=== PATIENT | female | born 1990 | race African-American/Black ===

== ENCOUNTER 2016-12-18 04:18 | Emergency (ER) | payer OTHER ==
[2016-12-18 04:39] VITALS: TEMP 97.7; BMI 23.8
[2016-12-18] MEDS ORDERED: SODIUM CHLORIDE 0.9% 1000 ML INFUS.BAG IV ONE (05:02)
[2016-12-18] MEDS ORDERED: KETOROLAC TROMETHAMINE 30 MG/1 ML VIAL IVPUSH ONE (05:02)
[2016-12-18] MEDS ORDERED: HYDROmorphone HCL CARPU-JECT 1 MG/1 ML DISP.SYRIN IVPUSH ONE ×2 (05:16→05:57)
[2016-12-18] MEDS ORDERED: HYDROmorphone HCL CARPU-JECT 1 MG/1 ML DISP.SYRIN ONE ×2 (05:17→06:04)
--- NOTE | 2016-12-18 05:25 | PDOC ---
[id number] CHEST PAIN - SICKLE CELL Time Seen by Provider: 12/18/16 05:01 - History of Present Illness Initial Comments: 12/18/16 05:17 CHIEF COMPLAINT: Sickle cell crisis HISTORY OF PRESENT ILLNESS: 26-year-old female with history of sickle cell anemia presents to ED with generalized pain. Patient states "it has been a long time" since her last sickle cell crisis. Patient complains of pain to her whole body including her chest that began an hour ago. FAMILY HISTORY: Denies SOCIAL HISTORY: Denies tobacco, alcohol, illicit drug use. SURGICAL HISTORY: Denies ALLERGIES: No known drug allergies REVIEW OF SYSTEMS General/Constitutional: Denies fever or chills. Denies weakness, weight change. HEENT: Denies change in vision. Denies ear pain or discharge. Denies sore throat. Cardiovascular: Chest pain, shortness of breath. Respiratory: Denies cough, wheezing, or hemoptysis. Gastrointestinal: Denies nausea, vomiting, diarrhea or constipation. Denies rectal bleeding. Genitourinary: Denies dysuria, frequency, or change in urination. Musculoskeletal: Generalized pain. Skin and breasts: Denies rash or easy bruising. Neurologic: Denies headache, vertigo, loss of consciousness, or loss of sensation. PHYSICAL EXAM General Appearance: Uncomfortable appearing, appropriately dressed. HEENT: EOMI, PERRLA, normal ENT inspection, normal voice, TMs normal, pharynx normal. No conjunctival pallor. No photophobia, scleral icterus. Neck: Supple. Trachea midline. No tenderness, rigidity, carotid bruit, stridor , lymphadenopathy, or thyromegaly. Respiratory/Chest: Lungs CTAB. No shortness of breath, chest tenderness, respiratory distress, accessory muscle use. No crackles, rales, rhonchi, stridor , wheezing, dullness Cardiovascular: RRR. S1, S2. Gastrointestinal/Abdominal: Normal bowel sounds. Abdomen soft, non-distended. No tenderness or rebound tenderness. No organomegaly, pulsatile mass, guarding , hernia, hepatomegaly, splenomegaly. Musculoskeletal/Extremities: Normal inspection. FROM of all extremities, normal capillary refill. No tenderness to extremities, pedal edema, swelling, erythema or deformity. Integumentary: Appropriate color, dry, warm. 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 Fully oriented, alert. Appropriate mood/affect. Motor strength 5/5. No appreciable EOM palsy, facial droop or sensory deficit. 12/18/16 05:25 Past History - Past Medical History Allergies/Adverse Reactions: Allergies Allergy/AdvReac Type Severity Reaction Status Date / Time No Known Allergies Allergy Verified 12/18/16 04:39 Home Medications: Ambulatory Orders Cefuroxime Axetil [Ceftin -] 500 mg PO Q12H #20 tablet 12/28/16 Ibuprofen [Motrin -] 600 mg PO QID PRN #28 tablet 12/28/16 Anemia: (Sickle cell) - Immunization History Immunization Up to Date: Yes - Psycho/Social/Smoking Cessation Hx Anxiety: No Suicidal Ideation: No Smoking History: Never smoked Information on smoking cessation initiated: No Hx Alcohol Use: No Drug/Substance Use Hx: No Substance Use Type: None *Physical Exam - Vital Signs Last Vital Signs Temp Pulse Resp BP Pulse Ox 97.7 F 63 19 96/57 100 12/18/16 04:35 12/18/16 04:35 12/18/16 04:35 12/18/16 04:35 12/18/16 04:35 ED Treatment Course - LABORATORY CBC & Chemistry Diagram: 12/18/16 05:10 12/18/16 05:10 - RADIOLOGY Radiology Studies Ordered: Category Date Time Status CHEST PA & LAT [RAD] Stat Radiology 12/18/16 05:15 Ordered Medical Decision Making - Medical Decision Making 12/18/16 05:28 26 yo F with hx of sickle cell anemia presents to ED with sickle cell crisis. -CBC, retic count, CMP, serum preg -1 L IVF -30 mg Toradol IVPUSH -0.5 mg Dilaudid IVPUSH -2L O2 via NC -CXR eval for acute chest 12/18/16 06:32 Patient reassessed; states her pain is much better but "my chest still feels tight." Awaiting CXR. -Albuterol nebs Labs: WBC 11.8, Hg 9.6, retic count 6.23, bilirubin 1.9 Clinical presentation consistent with hyperhemolytic crisis. Case discussed in detail with oncoming emergency provider including history, physical exam and ancillary studies. In brief, this patient is being seen in the ED for a chief complaint of: sickle cell crisis I have completed the initial assessment interview note and have ordered the following labs: CBC, retic count, CMP, serum preg I have reviewed the following results: all Plan for disposition as follows: pending CXR Oncoming ANDRZEJ Joy has assumed care for the patient and will complete the evaluation and treatment. 12/18/16 06:40 *DC/Admit/Observation/Transfer Diagnosis at time of Disposition: Sickle cell anemia with pain - Discharge Dispostion Disposition: HOME Condition at time of disposition: Improved - Referrals Referrals: STAFF,NOT ON [Primary Care Provider] - - Patient Instructions Printed Discharge Instructions: DI for Sickle Cell Anemia, Pain Crisis -- Adult Additional Instructions: Discharge Instructions: -A prescription was called out to [facility] for pain medication; the medication may cause drowsiness -You can also take Ibuprofen along with the narcotic pain medication. -Follow up with your doctor as soon as possible -Return to the ER with any worsening or concerning symptoms
[2016-12-18 05:28] LABS: BASOPHIL 0.6 % (0-2.0); EOSINOPHIL 0.3 % (0-4.5); MCH 20.6 pg (25.7-33.7); MCHC 31.7 g/dl (32.0-36.0); MEAN CELL VOLUME 64.9 fl (80-96); MEAN PLT VOLUME 8.9 fl (7.5-11.1); NEUTROPHILS 78.2 % (42.8-82.8); PLATELET COUNT 149 K/MM3 (134-434); RDW 15.4 % (11.6-15.6); WHITE BLOOD COUNT 11.8 K/mm3 (4.0-10.0)
[2016-12-18] MEDS ORDERED: KETOROLAC TROMETHAMINE 30 MG/1 ML VIAL ONE (06:04)
[2016-12-18 06:25] LABS: ALBUMIN 4.3 g/dl (3.4-5.0); ANION GAP 17 (8-16); BILIRUBIN,TOTAL 1.9 mg/dL (0.2-1.0); CALCIUM 8.3 mg/dL (8.5-10.1); CO2 16 mmol/L (21-32); CREATININE 0.7 mg/dL (0.55-1.02); GLUCOSE,RANDOM 96 mg/dL (74-106); SGPT/ALT 18 U/L (12-78); TOT PROT 7.8 g/dl (6.4-8.2)
[2016-12-18 06:26] LABS: ALK PHOS 74 U/L (45-117)
[2016-12-18 06:28] LABS: SGOT/AST 43 U/L (15-37)
[2016-12-18] MEDS ORDERED: ALBUTEROL SO4 0.083% IH SOL 2.5 MG/3 ML VIAL.NEB. NEB ONE (06:31)
--- NOTE | 2016-12-18 07:36 | PDOC ---
ED Treatment Course - LABORATORY CBC & Chemistry Diagram: 12/18/16 05:10 12/18/16 05:10 - ADDITIONAL ORDERS Additional order review: Laboratory Results 12/18/16 12/18/16 05:10 05:10 Sodium 144 Potassium 4.0 Chloride 111 H Carbon Dioxide 16 L D Anion Gap 17 H BUN 5 L Creatinine 0.7 D Creat Clearance w eGFR > 60 Random Glucose 96 D Calcium 8.3 L Total Bilirubin 1.9 H D AST 43 H D ALT 18 D Alkaline Phosphatase 74 Total Protein 7.8 Albumin 4.3 Serum , Qual Negative 12/18/16 05:10 RBC 4.68 MCV 64.9 L MCHC 31.7 L RDW 15.4 D MPV 8.9 D Neutrophils % 78.2 D Lymphocytes % 16.9 D Monocytes % 4.0 Eosinophils % 0.3 Basophils % 0.6 - Medications Given in the ED: ED Medications Discontinued Medications Generic Name Dose Route Start Last Admin Trade Name Freq PRN Reason Stop Dose Admin Hydromorphone HCl 0.5 mg 12/18/16 05:16 12/18/16 05:21 Dilaudid Injection - IVPUSH 12/18/16 05:17 0.5 mg ONCE ONE Administration Hydromorphone HCl 1 mg 12/18/16 05:57 12/18/16 06:12 Dilaudid Injection - IVPUSH 12/18/16 05:58 1 mg ONCE ONE Administration Ketorolac Tromethamine 30 mg 12/18/16 05:02 12/18/16 06:12 Toradol Injection - IVPUSH 12/18/16 05:03 30 mg ONCE ONE Administration Sodium Chloride 1,000 ml 12/18/16 05:02 12/18/16 05:21 Normal Saline - IV 12/18/16 05:03 1,000 ml ONCE ONE Administration Progress Note - Progress Note Progress Note: I have received report from WILLOW Roman regarding this patient. Pt's initial chief complaint: generalized pain Pt's work up completed prior to sign out: labs, serum Pt treatment given from prior staff: IV dilaudid, IV fluids, IV toradol, albuterol neb Pt plan to be completed: Awaiting CXR Dispo: Pending Medical Decision Making - Medical Decision Making A/P: 26 y/o afebrile female with PMH sickle cell anemia c/o generalized pain. The patient was initially seen and assessed by WILLOW Roman. The patient is now comfortable. Awaiting CXR. CXR IMPRESSION: Minimal sickle cell bone changes in the spine. Clear lungs. The patient states she feels better and believes she can go home. Will send her home with rx for Percocet for pain. Suggested she take Ibuprofen as well, drink plenty of fluids and f/u with her doctor as soon as possible. Instructed the patient to return to the ER with any worsening or concerning symptoms. The patient verbalizes understanding of all instructions, has no further questions and is awaiting discharge. 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 -Follow up with your doctor as soon as possible -Return to the ER with any worsening or concerning symptoms
[2016-12-18 07:50] LABS: ANISOCYTOSIS 2+; HYPOCHROMIA 2+; MICROCYTOSIS 2+
[2016-12-18] MEDS ORDERED: ONDANSETRON 4 MG/2 ML VIAL IVPUSH ONE (07:54)
[2016-12-18] MEDS ORDERED: ONDANSETRON 4 MG/2 ML VIAL ONE (07:57)
[2016-12-18 09:21] VITALS: BP 109/65; PULSE 75
== END 2016-12-18 09:21 | disposition home or self-care (01) ==
LOC: JER 04:18
PROC: 3E0F7GC Introduction of Other Therapeutic Substance into Respiratory Tract, Via Natural or Artificial Opening (ICD-10-PCS; principal; 2016-12-18)
PROC: 3E033NZ Introduction of Analgesics, Hypnotics, Sedatives into Peripheral Vein, Percutaneous Approach (ICD-10-PCS; 2016-12-18)
PROC: 3E033GC Introduction of Other Therapeutic Substance into Peripheral Vein, Percutaneous Approach (ICD-10-PCS; 2016-12-18)
PROC: 3E0333Z Introduction of Anti-inflammatory into Peripheral Vein, Percutaneous Approach (ICD-10-PCS; 2016-12-18)
DX: D57.00 Hb-SS disease with crisis, unspecified (principal)
CPT/HCPCS: 36415; 71020-TC; 80053; 84703; 85025; 85044; 94640; 96374; 96375; 99282-25

== ENCOUNTER 2016-12-27 22:13 | Emergency (ER) | payer OTHER ==
[2016-12-27 22:21] VITALS: BP 125/55; PULSE 106; TEMP 98; BMI 18.8
--- NOTE | 2016-12-27 23:41 | PDOC ---
[id number] No Limitations - History of Present Illness Initial Comments: 12/27/16 23:55 The patient is a 26 year old female with significant past medical history of sickle cell anemia who presents to the ED with 1 day of diffuse back pain. Patient was seen here on 12/18 for generalized pain where she treated and discharge. Patient returns today for diffuse back pain that she developed today. She denies her pain radiating down the legs. Patient states she does not have a PMD and normally deals with her sickle cell crisis at home. The patient denies fever, chills, cough, SOB, chest pain, and palpitations. The patient denies abdominal pain, nausea, vomiting, and diarrhea. Allergies: NKDA Social History: No alcohol, tobacco, or drug use reported. Past Surgical History: None reported No PMD <Letty Natarajan - Last Filed: 12/27/16 23:54> <Shiva Valenzuela - Last Filed: 12/28/16 04:48> - General Chief Complaint: Sickle Cell Crisis Stated Complaint: SICKLE CELL CRISIS Past History <Letty Natarajan - Last Filed: 12/27/16 23:54> - Past Medical History Anemia: (Sickle cell) - Immunization History Immunization Up to Date: Yes - Psycho/Social/Smoking Cessation Hx Anxiety: No Suicidal Ideation: No Smoking History: Never smoked Hx Alcohol Use: No Drug/Substance Use Hx: No Substance Use Type: None <Shiva Valenzuela - Last Filed: 12/28/16 04:48> - Past Medical History Allergies/Adverse Reactions: Allergies Allergy/AdvReac Type Severity Reaction Status Date / Time No Known Allergies Allergy Verified 12/27/16 22:18 Home Medications: Ambulatory Orders Cefuroxime Axetil [Ceftin -] 500 mg PO Q12H #20 tablet 12/28/16 Ibuprofen [Motrin -] 600 mg PO QID PRN #28 tablet 12/28/16 Review of Systems - Review of Systems Able to Perform ROS?: Yes Comments:: 12/27/16 23:55 CONSTITUTIONAL: Absent: fever, no chills, no fatigue EYES: Absent: visual changes ENT: Absent: ear pain, no sore throat CARDIOVASCULAR: Absent: chest pain, no palpitations RESPIRATORY: Absent: cough, no SOB GI: Absent: abdominal pain, no nausea, no vomiting, no constipation, no diarrhea GENITOURINARY: Absent: dysuria, no frequency, no hematuria MUSCULOSKELETAL: +diffuse back pain Absent: no arthralgia, no myalgia SKIN: Absent: rash NEURO: Absent: headache <Letty Natarajan - Last Filed: 12/27/16 23:54> *Physical Exam - Vital Signs Last Vital Signs Temp Pulse Resp BP Pulse Ox 98 F 106 H 18 125/55 100 12/27/16 22:19 12/27/16 22:19 12/27/16 22:19 12/27/16 22:19 12/27/16 22:19 - Physical Exam Comments: 12/27/16 23:55 GENERAL: Well-appearing, well-nourished. No apparent distress. HEENT: Normocephalic, atraumatic. PERRL, EOM intact. Icteric sclera CARDIOVASCULAR: Normal S1, S2. Regular rate and rhythm. PULMONARY: Clear to auscultation bilaterally. ABDOMEN: Soft, non-distended, non-tender. MUSCULOSKELETAL: No back tenderness EXTREMITIES: Normal ROM in all four extremities. No gross deformities. SKIN: Warm, dry. No rash NEUROLOGICAL: No focal neurological deficits. <Letty Natarajan - Last Filed: 12/27/16 23:54> - Vital Signs Last Vital Signs Temp Pulse Resp BP Pulse Ox 98 F 106 H 18 125/55 100 12/27/16 22:19 12/27/16 22:19 12/27/16 22:19 12/27/16 22:19 12/27/16 22:19 <Shiva Valenzuela - Last Filed: 12/28/16 04:48> ED Treatment Course - LABORATORY CBC & Chemistry Diagram: 12/28/16 01:23 12/28/16 01:23 <Shiva Valenzuela - Last Filed: 12/28/16 04:48> *DC/Admit/Observation/Transfer - Attestations Scribe Attestion: 12/27/16 23:55 Documentation prepared by Letty Natarajan, acting as medical lab director for Shiva Valenzuela MD, <Letty Natarajan - Last Filed: 12/27/16 23:54> - Discharge Dispostion Admit: No <Shiva Valenzuela Last Filed: 12/28/16 04:48> Diagnosis at time of Disposition: sickle, Sickle cell anemia with pain - Discharge Dispostion Disposition: AGAINST MEDICAL ADVICE Condition at time of disposition: Guarded - Prescriptions Prescriptions: Cefuroxime Axetil [Ceftin -] 500 mg PO Q12H #20 tablet Ibuprofen [Motrin -] 600 mg PO QID PRN #28 tablet PRN Reason: Pain - Patient Instructions Printed Discharge Instructions: DI for Sickle Cell Anemia, Pain Crisis -- Adult Additional Instructions: You are in crisis and refusing admission, this is Against Medical Advice. Please take your antibiotic for the urinary track infection.
[2016-12-27] MEDS ORDERED: SODIUM CHLORIDE 1,000 ML IV STA (23:45)
[2016-12-28 00:46] LABS: URINE APPEARANCE SLCLOUDY; URINE BILIRUBIN NEGATIVE (NEGATIVE); URINE BLOOD NEGATIVE (NEGATIVE); URINE COLOR YELLOW; URINE GLUCOSE (UA) NEGATIVE (NEGATIVE); URINE KETONE 1+ (NEGATIVE); URINE NITRITE NEGATIVE (NEGATIVE); URINE PROTEIN NEGATIVE (NEGATIVE); URINE UROBILINOGEN 2.0 E.U/dl E.U./dl (0.2-1.0)
[2016-12-28 00:49] LABS: URINE LEUK ESTERASE 2+ (NEGATIVE)
[2016-12-28 00:51] LABS: URINE MUCUS RARE; URINE RBC 3 /hpf (0-3); URINE WBC 10 /hpf (3-5)
[2016-12-28 01:34] LABS: EOSINOPHIL 0.5 % (0-4.5); MCH 20.5 pg (25.7-33.7); MCHC 31.8 g/dl (32.0-36.0); MEAN CELL VOLUME 64.7 fl (80-96); MEAN PLT VOLUME 8.7 fl (7.5-11.1); NEUTROPHILS 79.5 % (42.8-82.8); PLATELET COUNT 136 K/MM3 (134-434); WHITE BLOOD COUNT 13.3 K/mm3 (4.0-10.0)
[2016-12-28 01:57] LABS: ALBUMIN 4.7 g/dl (3.4-5.0); ANION GAP 11 (8-16); BILIRUBIN,TOTAL 1.2 mg/dL (0.2-1.0); CALCIUM 9.3 mg/dL (8.5-10.1); CO2 23 mmol/L (21-32); CREATININE 0.6 mg/dL (0.55-1.02); GLUCOSE,RANDOM 82 mg/dL (74-106); SGPT/ALT 30 U/L (12-78); TOT PROT 8.7 g/dl (6.4-8.2)
[2016-12-28] MEDS ORDERED: CEFTRIAXONE 1,000 MG in DEXTROSE 5%-WATER - 50 ML IVPB ONE (01:57)
[2016-12-28 01:58] LABS: ALK PHOS 77 U/L (45-117)
[2016-12-28 02:00] LABS: SGOT/AST 41 U/L (15-37)
[2016-12-28] MEDS ORDERED: CEFTRIAXONE 50 ML ONE (02:16)
[2016-12-28 05:09] LABS: PLATELET ESTIMATE ADEQUATE (NORMAL)
[2016-12-28 05:10] LABS: ANISOCYTOSIS 2+; HYPOCHROMIA 1+; MICROCYTOSIS 2+; OVALOCYTES 1+; POIKILOCYTOSIS 2+; POLYCHROMASIA 2+; TARGET CELLS 1+
== END 2016-12-28 03:17 | disposition left against medical advice (07) ==
LOC: JER 22:13
PROC: 3E0337Z Introduction of Electrolytic and Water Balance Substance into Peripheral Vein, Percutaneous Approach (ICD-10-PCS; principal; 2016-12-27)
PROC: 3E03329 Introduction of Other Anti-infective into Peripheral Vein, Percutaneous Approach (ICD-10-PCS; 2016-12-27)
PROC: 3E033NZ Introduction of Analgesics, Hypnotics, Sedatives into Peripheral Vein, Percutaneous Approach (ICD-10-PCS; 2016-12-27)
DX: D57.1 Sickle-cell disease without crisis (principal)
CPT/HCPCS: 36415; 80053; 81003; 81015; 84703; 85025; 85044; 85651; 96361; 96365; 96375; 99283-25

== ENCOUNTER 2018-06-23 10:27 | Emergency (ER) | payer OTHER ==
[2018-06-23 10:45] VITALS: BMI 22.4
[2018-06-23 12:15] LABS: URINE APPEARANCE CLEAR; URINE BILIRUBIN NEGATIVE (<2.0 mg/dL); URINE COLOR YELLOW; URINE GLUCOSE (UA) NEGATIVE (NEGATIVE); URINE KETONE NEGATIVE (NEGATIVE); URINE LEUK ESTERASE TRACE (NEGATIVE); URINE NITRITE NEGATIVE (NEGATIVE); URINE PROTEIN NEGATIVE (NEGATIVE)
[2018-06-23] MEDS ORDERED: DEXTROSE 5%-LACTATED RINGERS 500 ML IV ONE (12:15)
[2018-06-23 12:31] LABS: EPI CELLS RARE /HPF (FEW); URINE BACTERIA RARE /hpf (NONE SEEN)
--- NOTE | 2018-06-23 12:39 | PDOC ---
History of Present Illness - General Chief Complaint: Hematuria Stated Complaint: 27 WEEKS /BLEEDING Time Seen by Provider: 06/23/18 12:39 Past History - Past Medical History Allergies/Adverse Reactions: Allergies Allergy/AdvReac Type Severity Reaction Status Date / Time No Known Allergies Allergy Verified 06/23/18 10:33 Home Medications: Ambulatory Orders Cefuroxime Axetil [Ceftin -] 500 mg PO Q12H #20 tablet 12/28/16 Ibuprofen [Motrin -] 600 mg PO QID PRN #28 tablet 12/28/16 Anemia: Yes (Sickle cell) COPD: No - Immunization History Immunization Up to Date: Yes - Suicide/Smoking/Psychosocial Hx Smoking History: Never smoked Hx Alcohol Use: No Drug/Substance Use Hx: No Substance Use Type: None *Physical Exam - Vital Signs Last Vital Signs Temp Pulse Resp BP Pulse Ox 98.3 F 96 H 19 95/62 100 06/23/18 10:33 06/23/18 10:33 06/23/18 10:33 06/23/18 10:33 06/23/18 10:33 ED Treatment Course - ADDITIONAL ORDERS Additional order review: Laboratory Results 06/23/18 11:55 Urine Color Yellow Urine Appearance Clear Urine pH 8.0 D Ur Specific [place] 1.006 Urine Protein Negative Urine Glucose (UA) Negative Urine Ketones Negative Urine Blood 3+ H Urine Nitrite Negative Urine Bilirubin Negative Urine Urobilinogen 2.0 H Ur Leukocyte Esterase Trace Urine WBC (Auto) 9 Urine RBC (Auto) 116 Ur Epithelial Cells Rare Urine Bacteria Rare
[2018-06-23 13:11] VITALS: BP 96/62; PULSE 84; TEMP 97.8
== END 2018-06-23 15:10 | disposition home or self-care (01) ==
LOC: JER 10:27
PROC: 3E0337Z Introduction of Electrolytic and Water Balance Substance into Peripheral Vein, Percutaneous Approach (ICD-10-PCS; principal; 2018-06-23)
DX: O26.892 Other specified pregnancy related conditions, second trimester (principal); Z3A.27 27 weeks gestation of pregnancy; N93.9 Abnormal uterine and vaginal bleeding, unspecified
CPT/HCPCS: 81003; 81015; 96360; 99281-25

== ENCOUNTER 2019-03-18 10:39 | Emergency (ER) | payer OTHER ==
[2019-03-18 10:44] VITALS: TEMP 97.7; BMI 21.4
--- NOTE | 2019-03-18 11:14 | PDOC ---
History of Present Illness - General Chief Complaint: Pain Stated Complaint: SICKLE CELL Time Seen by Provider: 03/18/19 10:59 History Source: Patient, Old Records Exam Limitations: No Limitations - History of Present Illness Initial Comments: HPI: 28 y/o female presenting to [facility] ER complaining of bilateral upper back pain since last evening. Does not radiate to anterior chest wall, neck, or abdomen. No trauma to the area. No skin changes. History of sickle cell disease ( documented in [facility]). Concerned symptoms are a pain crisis. Reports last crisis was 6 days ago. Was evaluated at [facility]. Manages at home with Oxycodone. PCP: Dr. Bello Lehman Regional Retail Sales Manager Dr. Tucker Samuels at [facility]. Has not visited since her 5 months ago. Medical Hx: - Sickle Cell Disease - S/p BTL Review of Systems: In addition to that documented in the HPI above, the additional ROS was obtained : Constitutional: Denies fevers or chills Head: Denies vision changes ENMT: Denies sore throat CV: Denies chest pain Resp: Denies SOB GI: Denies vomiting or diarrhea : Denies painful urination, increased urinary frequency, hematuria, or vaginal discharge MSK: Denies recent trauma Skin: Denies new rashes Neuro: Denies new numbness or tingling or weakness Endocrine: Denies polyuria Heme: Denies bleeding or bruising Physical Examination: Constitutional: Well-developed, well-nourished adult female in no acute distress or obvious discomfort. Found semi-fowlers on hospital bed. Alert and oriented x4. Answered all questions appropriately and completely. Speech was non -labored, non-pressured. Head: Normocephalic. No obvious external signs of trauma. Eyes: Sclerae white. Conjunctiva moist and not injected. Ears: Hearing grossly intact. Nose: No nasal discharge. Neck: Supple, trachea is midline. Cardiovascular / Chest: Regular rate and regular rhythm. No murmur, rubs, clicks , or gallops. Peripheral pulses: radial pulses full. Respiratory: Breathing unlabored. Equal chest rise and fall. Clear to auscultation bilaterally. No stridor, no wheezing, no rhonchi. Gastrointestinal: abdomen is soft, non-tender, non-distended. Neuro: Alert and oriented. Moving all four extremities spontaneously. Skin: Warm, dry, and intact. No bruising, rashes, or other lesions to anterior chest or upper back. : No R or L CVA tenderness. Psych: Affect: appropriate. Mood: normal. MDM: *Reviewed vital signs, nursing notes, and prior visit documentation (if available). 28 y/o female presenting with upper back/posterior wall chest pain x1 day. No reported infectious symptoms. Afebrile. Vitals unremarkable for hypotension or tachycardia. Physical exam as described above. Low suspicion for acute chest but will evaluate further with EKG and CXR. Ordered reticulocyte count, LDH, CBC , CMP to further evaluate. Urine ordered to evaluate for acute cystitis versus pyelonephritis; very low suspicion as pain is upper back, no CVA tenderness, and no reported urinary symptoms. Ordered Morphine and IVFB for pain control. EKG unremarkable for ischemic changes. CBC revealed mild anemia but within baseline documented on [facility]. CMP unremarkable for significant electrolyte derangement or LFT derangement. T.Bili elevated but at baseline. Reticulocyte elevated so low suspicion for aplastic anemia. LDH mildly elevated. UA unremarkable for pyuria, nitrites, or leukocyte esterase. Urine culture pending. Low suspicion for acute cystitis. UPreg negative. CXR unremarkable for signs of acute chest. Suspect likely muscle strain or mild sickle cell crisis. Pt reassessed and reports pain unchanged. Ordered Dilaudid as pt is not opiate naive. Pt reassessed and feels better. States she thinks she is able to go home. Will not be driving. 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 Does not have any home narcotics. Will provide very short term Percocet prescription to carry until the f/u appt. Called and verified pts discharge information with ED Attending at [facility]. Also reviewed pts [facility] profile. No other recent hospitalizations were discovered. Unable to locate pt in [facility]. Verified pts ID. Unsure of reason. Bridger Walker M.D., PGY1 Emergency Medicine Resident Past History - Past Medical History Allergies/Adverse Reactions: Allergies Allergy/AdvReac Type Severity Reaction Status Date / Time No Known Allergies Allergy Verified 03/18/19 10:44 Home Medications: Ambulatory Orders Folic Acid - 1 mg PO DAILY 03/18/19 Oxycodone HCl/Acetaminophen [Percocet 5-325 mg Tablet] 1 tab PO Q4H PRN #12 tablet MDD 4 tabs 03/18/19 Anemia: Yes (Sickle cell) COPD: No - Immunization History Immunization Up to Date: Yes - Suicide/Smoking/Psychosocial Hx Smoking History: Never smoked Hx Alcohol Use: No Drug/Substance Use Hx: No Substance Use Type: None *Physical Exam - Vital Signs Last Vital Signs Temp Pulse Resp BP Pulse Ox 97.7 F 88 18 109/75 100 03/18/19 10:41 03/18/19 10:41 03/18/19 10:41 03/18/19 10:41 03/18/19 10:41 ED Treatment Course - LABORATORY CBC & Chemistry Diagram: 03/18/19 11:10 03/18/19 11:10 *DC/Admit/Observation/Transfer Diagnosis at time of Disposition: Acute upper back pain - Discharge Dispostion Disposition: HOME Condition at time of disposition: Good Decision to Admit order: No - Prescriptions Prescriptions: Oxycodone HCl/Acetaminophen [Percocet 5-325 mg Tablet] 1 tab PO Q4H PRN #12 tablet MDD 4 tabs PRN Reason: Severe Pain - Referrals Referrals: Bello Lehman MD [Primary Care Provider] - - Patient Instructions Printed Discharge Instructions: DI for Acute Pain -- Adult, DI for Prescription Opioid Use Additional Instructions: You were seen today for upper back pain. The pain may have been related to your sickle cell disease but was not likely an acute pain crisis. It very well may have been common muscle pain / strain. Rest over the next several days. Avoid heavy lifting or vigorous activity. I have sent a very short term prescription for Percocet to [facility]. Take as directed on the package insert. Do not take more than the recommended dose. You can also take over the counter Ibuprofen and/or Acetaminophen for pain. Take as directed on the package insert. Do not take more than the recommended dose. Follow up with your lease administration supervisor this week at the previously scheduled appointment. Go to the nearest emergency department if your condition worsens or you feel like you need additional emergency evaluation. Print Language: HUNGARIAN - Post Discharge Activity Forms/Work/School Notes: Back to Work
[2019-03-18] MEDS ORDERED: morphine CARPU-JECT 4 MG/1 ML DISP.SYRIN IVPUSH ONE (11:20)
[2019-03-18] MEDS ORDERED: LACTATED RINGERS SOLUTION 1000 ML INFUS.BAG IV ONE (11:21)
[2019-03-18] MEDS ORDERED: morphine SULFATE 4 MG/ML VIAL ONE (11:24)
[2019-03-18 11:36] LABS: BASO % 1.1 % (0-2.0); EOS % 1.6 % (0-4.5); HEMATOCRIT 26.3 % (32.4-45.2); HEMOGLOBIN 8.4 GM/dL (10.7-15.3); LYMPH % 34.1 % (8-40); MCH 20.1 pg (25.7-33.7); MCHC 31.8 g/dl (32.0-36.0); MEAN CELL VOLUME 63.3 fl (80-96); MONO % 5.3 % (3.8-10.2); NEUT % 57.9 % (42.8-82.8); PLATELET COUNT 136 K/MM3 (134-434); RBC 4.16 M/mm3 (3.60-5.2); RETICULOCYTES 6.14 % (0.5-1.5); WHITE BLOOD COUNT 8.4 K/mm3 (4.0-10.0)
--- NOTE | 2019-03-18 11:44 | PDOC ---
Attending Attestation - Resident Resident Name: Bridger Walker - ED Attending Attestation I have performed the following: I have examined & evaluated the patient, The case was reviewed & discussed with the resident, I agree w/resident's findings & plan, Exceptions are as noted - HPI HPI: 28 yo F history sickle cell SS (usually manages it at home with PO oxycodone) presents with painful crisis. Denies any specific inciting factors. No prior history of acute chest. Denies SOB, cp, weakness, numbness. Pain localizes to upper back, between her shoulder blades. She has had similar pain in the past. - Physicial Exam PE: GENERAL: Awake, alert, and fully oriented, in no acute distress HEAD: No signs of trauma EYES: PERRLA, EOMI, sclera anicteric, conjunctiva clear ENT: Auricles normal inspection, hearing grossly normal, nares patent, oropharynx clear without exudates. Moist mucosa NECK: Normal ROM, supple, no lymphadenopathy, JVD, or masses LUNGS: Breath sounds equal, clear to auscultation bilaterally. No wheezes, and no crackles HEART: Regular rate and rhythm, normal S1 and S2, no murmurs, rubs or gallops ABDOMEN: Soft, nontender, normoactive bowel sounds. No guarding, no rebound. No masses EXTREMITIES: Normal range of motion, no edema. No clubbing or cyanosis. No cords, erythema, or tenderness NEUROLOGICAL: Cranial nerves II through XII grossly intact. Normal speech, normal gait. Motor and sensation intact SKIN: Warm, Dry, normal turgor, no rashes or lesions noted. - Medical Decision Making Pt presents with sickle cell pain crisis. No red flag symptoms. Low suspicion for acute chest based on presentation. Will give analgesics, reassess.
[2019-03-18 12:10] LABS: ALBUMIN 3.8 g/dl (3.4-5.0); BILIRUBIN,TOTAL 1.3 mg/dL (0.2-1); CALCIUM 8.2 mg/dL (8.5-10.1); CREATININE 0.7 mg/dL (0.55-1.3); POTASSIUM 4.3 mmol/L (3.5-5.1); TOT PROT 7.9 g/dl (6.4-8.2)
[2019-03-18 12:16] LABS: EPI CELLS 2.6 /HPF (0-5/HPF); URINE APPEARANCE CLEAR; URINE BACTERIA 26.4 /hpf (NEGATIVE); URINE BILIRUBIN NEGATIVE (NEGATIVE); URINE CASTS 4 /lpf (0-8); URINE COLOR YELLOW; URINE GLUCOSE (UA) NEGATIVE (NEGATIVE); URINE KETONE NEGATIVE (NEGATIVE); URINE LEUK ESTERASE TRACE (NEGATIVE); URINE NITRITE NEGATIVE (NEGATIVE); URINE PROTEIN NEGATIVE (NEGATIVE); URINE RBC 0 /hpf (0-4); URINE UROBILINOGEN 0.2 mg/dL (0.2-1.0); URINE WBC 2 /hpf (0-5)
[2019-03-18] MEDS ORDERED: HYDROmorphone HCL CARPU-JECT 2 MG/1 ML DISP.SYRIN IVPUSH ONE (12:38)
[2019-03-18] MEDS ORDERED: HYDROmorphone HCl 2 MG/ML VIAL ONE (12:46)
[2019-03-18 14:15] VITALS: BP 99/70; PULSE 66
--- NOTE | 2019-03-19 11:04 | EKG ---
Test Reason : Blood Pressure : / mmHG Vent. Rate : 073 BPM Atrial Rate : 073 BPM P-R Int : 120 ms QRS Dur : 072 ms QT Int : 404 ms P-R-T Axes : 051 060 055 degrees QTc Int : 445 ms NORMAL SINUS RHYTHM NORMAL ECG WHEN COMPARED WITH ECG OF 11-JUN-2014 01:55, NO SIGNIFICANT CHANGE WAS FOUND Confirmed by ANTIONE LANDA MD ([id number]) on 03/19/2019 11:04:19 AM Referred By: Confirmed By:ANTIONE LANDA MD
== END 2019-03-18 15:02 | disposition home or self-care (01) ==
LOC: JER 10:39
PROC: 3E033NZ Introduction of Analgesics, Hypnotics, Sedatives into Peripheral Vein, Percutaneous Approach (ICD-10-PCS; principal; 2019-03-18)
PROC: 3E033NZ Introduction of Analgesics, Hypnotics, Sedatives into Peripheral Vein, Percutaneous Approach (ICD-10-PCS; 2019-03-18)
DX: M54.89 Other dorsalgia (principal); Z86.2 Personal history of diseases of the blood and blood-forming organs and certain disorders involving the immune mechanism
CPT/HCPCS: 36415; 71046-TC-FY; 80053; 81003; 83615; 84703; 85025; 85044; 87086; 93005; 93010; 96374; 96375; 99282-25

== ENCOUNTER 2019-04-08 04:53 | Emergency (ER) | payer OTHER ==
[2019-04-08 04:56] VITALS: BP 121/87; PULSE 74; TEMP 97.6; BMI 21.6
[2019-04-08] MEDS ORDERED: SODIUM CHLORIDE 1,000 ML IV STA (04:57)
--- NOTE | 2019-04-08 04:57 | PDOC ---
History of Present Illness - General Chief Complaint: Pain Stated Complaint: SICKLE CELL CRISIS Time Seen by Provider: 04/08/19 04:56 - History of Present Illness Initial Comments: 04/08/19 06:00 Patient is a 28 year old female came in to the ED with the chief complaint of severe back pain and right thigh pain and stated " As per EMS they were called, patient I am on sickel cell crisis" and brought in to the ED for further evaluation. Patient states she was diagnosed to have SS. Got several Blood transfusions in the past. Has been seeing Heme routinely, next appointment is end of this month. Denies chest pain, sob, cough, palpitation, abdominal pain, nausea, vomiting, fever, chills, rigors, sweating. Bowel/Bladder habit normal. no urinary symptoms. Past medical history: Sickel cell disease. Allergies: NKDA Past surgical history: 1 c sec Social history: has 3 kids. 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 Past History - Travel Traveled outside of the country in the last 30 days: Yes Close contact w/someone who was outside of country & ill: No - Past Medical History Allergies/Adverse Reactions: Allergies Allergy/AdvReac Type Severity Reaction Status Date / Time No Known Allergies Allergy Verified 04/08/19 04:55 Home Medications: Ambulatory Orders Folic Acid - 1 mg PO DAILY 03/18/19 Oxycodone HCl/Acetaminophen [Percocet 5-325 mg Tablet] 1 tab PO Q4H PRN #12 tablet MDD 4 tabs 03/18/19 Anemia: Yes (Sickle cell) COPD: No - Immunization History Immunization Up to Date: Yes - Suicide/Smoking/Psychosocial Hx Smoking History: Never smoked Have you smoked in the past 12 months: No Information on smoking cessation initiated: No Hx Alcohol Use: No Drug/Substance Use Hx: No Substance Use Type: None Review of Systems - Review of Systems Able to Perform ROS?: Yes Is the patient limited Kazakh proficient: No *Physical Exam - Vital Signs Last Vital Signs Temp Pulse Resp BP Pulse Ox 97.6 F 74 18 121/87 100 04/08/19 04:55 04/08/19 04:55 04/08/19 04:55 04/08/19 04:55 04/08/19 04:55 - Physical Exam Comments: 04/08/19 06:52 General: Patient looks uncomfortable, awake, alert, oriented x 3, not in respiratory distress HEENT: EOM intact, no pallor or icterus. Chest: B/L lungs clear, no added sounds CVS: Regular rate and rhythm, no murmurs Abdomen: Soft, non tender, no organomegaly, BS + Ext: Tenderness in right thigh and back. Neuro: Grossly normal. ED Treatment Course - LABORATORY CBC & Chemistry Diagram: 04/08/19 08:50 04/08/19 10:19 Medical Decision Making - Medical Decision Making 04/08/19 06:55 Patient is a 28 yr old female with back pain and right thigh pain with sickel cell painful crisis. 1 L of NS, Morphine 2 mg given. Will send reticulocyte count. Urine for preg test 04/08/19 Pain getting better. Pt requesting for tramadol. 04/08/19 07:[address] Diaz. *DC/Admit/Observation/Transfer Diagnosis at time of Disposition: Sickle cell pain crisis - Discharge Dispostion Disposition: HOME Condition at time of disposition: Good - Referrals Referrals: Bello Lehman MD [Primary Care Provider] - - Patient Instructions Printed Discharge Instructions: DI for Sickle Cell Anemia, Pain Crisis -- Adult Additional Instructions: Please keep your previously scheduled appointment with your sewer pipe offbearer. Return to the ED for any new/worsening/concerning symptoms. - Post Discharge Activity
[2019-04-08] MEDS ORDERED: MORPHINE SULFATE 2 MG/ML VIAL IVPUSH ONE (04:58)
[2019-04-08] MEDS ORDERED: MORPHINE SULFATE 2 MG/ML VIAL ONE (05:01)
--- NOTE | 2019-04-08 06:05 | PDOC ---
Attending Attestation - Resident Resident Name: Angy Boldenny - ED Attending Attestation I have performed the following: I have examined & evaluated the patient, The case was reviewed & discussed with the resident, I agree w/resident's findings & plan - HPI HPI: 04/08/19 06:03 Pt comes withback pain and sickle crisis. Also right thigh pain. Afebrile. Pt will be hydrated. - Physicial Exam PE: 04/08/19 06:04 Agree with resident exam. - Medical Decision Making 04/08/19 06:04 Pt will be hydrated; and rx with morphine and retic count will be sent. Once she feels beter, she can go home. We will sign out to the day ER team
--- NOTE | 2019-04-08 07:24 | PDOC ---
*Physical Exam - Vital Signs Last Vital Signs Temp Pulse Resp BP Pulse Ox 97.6 F 74 18 121/87 100 04/08/19 04:55 04/08/19 04:55 04/08/19 04:55 04/08/19 04:55 04/08/19 04:55 - Physical Exam General Appearance: Yes: Nourished, Appropriately Dressed HEENT: positive: Normal Voice, Hearing Grossly Normal Neck: positive: Trachea midline, Supple Integumentary: positive: Normal Color, Dry, Warm Neurologic: positive: metal hanger II-XII NML intact, Fully Oriented, Alert ED Treatment Course - LABORATORY CBC & Chemistry Diagram: 04/08/19 08:50 04/08/19 10:19 - ADDITIONAL ORDERS Additional order review: Laboratory Results 04/08/19 06:09 Serum , Qual Negative - Medications Given in the ED: ED Medications Discontinued Medications Generic Name Dose Route Start Last Admin Trade Name Freq PRN Reason Stop Dose Admin Sodium Chloride 1,000 mls @ 1,000 mls/hr 04/08/19 04:57 04/08/19 05:57 Normal Saline - IV 04/08/19 05:56 1,000 mls/hr ASDIR STA Administration Morphine Sulfate 2 mg 04/08/19 04:58 04/08/19 05:57 Morphine Sulfate IVPUSH 04/08/19 04:59 2 mg ONCE ONE Administration Medical Decision Making - Medical Decision Making 04/08/19 07:24 Patient signed out by Dr. Brambila. 28 year old female with SCD with B/L LE pain c/w sickle cell pain. No chest pain , low clinical suspicion for Acute Chest Syndrome S/p Morphine + IV NS Patient assessed @ bedside, requests Toradol as it relieved her pain on previous evaluation 04/08/19 08:40 Reassessed @ bedside Symptomatically improved, requesting D/C home, states she has previously scheduled appointment with her oncologist, Dr. Westfall on 04/20 CBC pending 04/08/19 09:40 Hb 7.2 (as per EMR previous Hb 8 in 02/2019, Hb 9-10 on ED visits in 2017) Patient denies any associated shortness of breath, palpitations Patient does not know her baseline Hb, concern Call placed to Dr. Westfall - patient's oncologist 04/08/19 10:20 Case d/w gis application developer service for patient's tennis director (Dr. Westfall) - states patient' s Hb range 7-8 with a few isolated readings @ 6. Recommends no transfusion as patient is Asx CMP pending - if no hypokalemia 2/2 to [facility] will discharge home. 04/08/19 13:22 CMP unremarkable. Patient is symptomatically improved and comfortable with discharge home. Counseled to follow-up with hematology as previously scheduled for 04/20. Will return to ED for worsening symptoms including chest pain. I discussed the physical exam findings, ancillary test results and final diagnoses with the patient. I answered all of the patient's questions. The patient was satisfied with the care received and felt comfortable with the discharge plan and treatment plan. The patient will return to the Emergency Department with any new, persistent or worsening symptoms. *DC/Admit/Observation/Transfer Diagnosis at time of Disposition: Sickle cell pain crisis - Discharge Dispostion Disposition: HOME Condition at time of disposition: Good Decision to Admit order: No - Referrals Referrals: Bello Lehman MD [Primary Care Provider] - - Patient Instructions Printed Discharge Instructions: DI for Sickle Cell Anemia, Pain Crisis -- Adult Additional Instructions: Please keep your previously scheduled appointment with your tennis director. Return to the ED for any new/worsening/concerning symptoms. - Post Discharge Activity
[2019-04-08] MEDS ORDERED: KETOROLAC TROMETHAMINE 30 MG/1 ML VIAL IVPUSH ONE (07:25)
[2019-04-08] MEDS ORDERED: morphine CARPU-JECT 4 MG/1 ML DISP.SYRIN IVPUSH ONE (07:25)
[2019-04-08] MEDS ORDERED: morphine SULFATE 4 MG/ML VIAL ONE (07:38)
[2019-04-08] MEDS ORDERED: KETOROLAC TROMETHAMINE 30 MG/1 ML VIAL ONE (07:38)
[2019-04-08 09:06] LABS: BASO % 0.6 % (0-2.0); EOS % 0.1 % (0-4.5); HEMATOCRIT 23.3 % (32.4-45.2); HEMOGLOBIN 7.2 GM/dL (10.7-15.3); MCHC 30.9 g/dl (32.0-36.0); MEAN CELL VOLUME 67.8 fl (80-96); MEAN PLT VOLUME 8.7 fl (7.5-11.1); MONO % 4.2 % (3.8-10.2); NEUT % 72.1 % (42.8-82.8); PLATELET COUNT 165 K/MM3 (134-434); RBC 3.44 M/mm3 (3.60-5.2); RDW 18.7 % (11.6-15.6); WHITE BLOOD COUNT 11.8 K/mm3 (4.0-10.0)
[2019-04-08 11:11] LABS: ALBUMIN 3.8 g/dl (3.4-5.0); BLOOD UREA NITROGEN 4.9 mg/dL (7-18); CALCIUM 8.2 mg/dL (8.5-10.1); CREATININE 0.6 mg/dL (0.55-1.3); TOT PROT 7.7 g/dl (6.4-8.2)
[2019-04-08 16:19] LABS: ANISOCYTOSIS 2+; MACROCYTOSIS 0; PLATELET ESTIMATE DECREASED; SICKELED CELLS 1+; TARGET CELLS 1+
== END 2019-04-08 11:30 | disposition home or self-care (01) ==
LOC: JER 04:53
PROC: 3E0337Z Introduction of Electrolytic and Water Balance Substance into Peripheral Vein, Percutaneous Approach (ICD-10-PCS; principal; 2019-04-08)
PROC: 3E033NZ Introduction of Analgesics, Hypnotics, Sedatives into Peripheral Vein, Percutaneous Approach (ICD-10-PCS; 2019-04-08)
PROC: 3E033NZ Introduction of Analgesics, Hypnotics, Sedatives into Peripheral Vein, Percutaneous Approach (ICD-10-PCS; 2019-04-08)
PROC: 3E0333Z Introduction of Anti-inflammatory into Peripheral Vein, Percutaneous Approach (ICD-10-PCS; 2019-04-08)
DX: D57.00 Hb-SS disease with crisis, unspecified (principal)
CPT/HCPCS: 36415; 80053; 84703; 85025; 85044; 96361; 96374; 96375; 96376; 99283-25; J7030

== ENCOUNTER 2019-04-09 09:09 | Inpatient (IN) | payer OTHER | END 2019-04-14 14:42 | disposition home or self-care (01) | LOC: JER 09:09 → JERBED 14:41 → J8W 16:32 ==

== ENCOUNTER 2019-08-04 06:05 | Inpatient (IN) | payer OTHER ==
--- NOTE | 2019-08-04 07:10 | PDOC ---
History of Present Illness - General Chief Complaint: Sickle Cell Crisis Stated Complaint: SICKEL CELL CRISIS Time Seen by Provider: 08/04/19 07:03 History Source: Patient Exam Limitations: No Limitations - History of Present Illness Initial Comments: Maria Elena's Mother's telephone number - [phone] Maria Elena Ojeda is a 29 yo F w a pmh of sickle cell disease who presents with chest , back, leg and bilateral rib pain. The patient states she has never had an acute chest syndrome. She reports that she woke up yesterday morning and had severe right leg pain for which she took two oxycontin's which resolved most of her pain. Then she awoke in the middle of the night with really bad chest, back and bilateral rib pain. The patient took two more oxycontin but it didn't help her much and she couldn't fall back asleep so she came to the ER to be evaluated. She states this is how her standard pain crisis episodes work and she is sure she doesn't have an infection but rather just is experiencing a sickle cell pain crisis. She denies recent fevers, chills, infections, dysuria, frequency, urgency, headache, neck pain, blurry vision, weakness, numbness, tingling, or chills. LMP: Ended yesterday PCP: Clemencia Jenkins PSH: Allergies: NKA, NKDA Social Hx: recreational alcohol. Denies smoking or other illicit drug usage. Past History - Past Medical History Allergies/Adverse Reactions: Allergies Allergy/AdvReac Type Severity Reaction Status Date / Time No Known Allergies Allergy Verified 08/04/19 08:37 Home Medications: Ambulatory Orders Hydroxyurea 500 mg PO DAILY 08/04/19 Anemia: Yes (Sickle cell) COPD: No - Immunization History Immunization Up to Date: Yes - Psycho Social/Smoking Cessation Hx Smoking History: Never smoked Have you smoked in the past 12 months: No Hx Alcohol Use: Yes (occassionally) Drug/Substance Use Hx: No Substance Use Type: None Review of Systems - Review of Systems Able to Perform ROS?: Yes Comments:: CONSTITUTIONAL: Absent: fever, no chills, no fatigue EYES: Absent: visual changes ENT: Absent: ear pain, no sore throat CARDIOVASCULAR: Present: Chest pain Absent: no palpitations RESPIRATORY: Absent: cough, no SOB GI: Absent: abdominal pain, no nausea, no vomiting, no constipation, no diarrhea GENITOURINARY: Absent: dysuria, no frequency, no hematuria MUSKULOSKELETAL: Present: back pain, arthralgia Absent: no myalgia SKIN: Absent: rash NEURO: Absent: headache Is the patient limited Ghanaian proficient: Yes *Physical Exam - Vital Signs Last Vital Signs Temp Pulse Resp BP Pulse Ox 97.9 F 79 18 103/62 100 08/04/19 06:13 08/04/19 06:13 08/04/19 06:13 08/04/19 06:13 08/04/19 06:13 - Physical Exam Comments: GENERAL: Well-appearing, well-nourished. Mild distress. HEENT: Normocephalic, atraumatic. PERRL, EOM intact. CARDIOVASCULAR: Normal S1, S2. Regular rate and rhythm. PULMONARY: No evidence of respiratory distress. Lungs clear to auscultation bilaterally. No wheezing, rales or rhonchi. ABDOMEN: Soft, non-distended, non-tender. EXTREMITIES: Normal ROM in all four extremities. No gross deformities. SKIN: Warm, dry. No rash NEUROLOGICAL: No focal neurological deficits. Procedures - Bedside Ultrasound Other: vascular Remarks: Bedside vascular US: Patient is a very hard IV access. US guided 20 gauge IV placed in right AC, good flush, good return, good flow. ED Treatment Course - LABORATORY CBC & Chemistry Diagram: 08/04/19 08:25 08/04/19 08:25 - RADIOLOGY Radiograph Interpretation: CXR: Chest : Severe chest pain 2 views of the chest reveal clear well aerated lungs with no sign of infiltrate, failure or pneumothorax. The angles are sharp. The bones and soft tissues are intact. The mediastinum is not widened. Since 2018 there is no change of an adverse nature. Impression: No acute chest pathology. No significant change since prior study. Medical Decision Making - Medical Decision Making Maria Elena Ojeda is a 29 yo F w a pmh of sickle cell disease who presents with chest , back, leg and bilateral rib pain. The patient states she has never had an acute chest syndrome. She reports that she woke up yesterday morning and had severe right leg pain for which she took two oxycontin's which resolved most of her pain. Then she awoke in the middle of the night with really bad chest, back and bilateral rib pain. The patient took two more oxycontin but it didn't help her much and she couldn't fall back asleep so she came to the ER to be evaluated. She states this is how her standard pain crisis episodes work and she is sure she doesn't have an infection but rather just is experiencing a sickle cell pain crisis. She denies recent fevers, chills, infections, dysuria, frequency, urgency, headache, neck pain, blurry vision, weakness, numbness, tingling, or chills. LMP: Ended yesterda Vital Signs Temp Pulse Resp BP Pulse Ox 97.9 F 79 18 103/62 100 08/04/19 06:13 08/04/19 06:13 08/04/19 06:13 08/04/19 06:13 08/04/19 06:13 DDx IBNLT: Sickle cell pain crisis, Acute chest syndrome, ACS/KY, costochondritis, electrolyte/metabolic disturbance Plan: Labs, EKG, CXR, analgesia, IV hydration, re-assess. Labs: Anemic - appears to be patient's baseline. EKG: NS rate of 72, narrow complexes, normal axis, no hypertrophy, no ST elevations or depressions, no abnormal TWI's, no Q waves, VT 126, Qtc 438 Impression: Normal ECG CXR: Unremarkable Re-assessment: Patient still in a significant amount of pain despite 4 of morphine. Will try dilaudid and benadryl then re-assess. - Patient's pain not controlled with dilaudid - Will admit for pain crisis Disposition: admit to hospital Discharge - Discharge Information Problems reviewed: Yes Clinical Impression/Diagnosis: Sickle cell pain crisis, Sickle cell anemia with pain Condition: Stable - Admission Yes - Follow up/Referral Referrals: Clemencia Jenkins [Primary Care Provider] - - Patient Discharge Instructions - Post Discharge Activity
[2019-08-04] MEDS ORDERED: morphine CARPU-JECT 4 MG/1 ML DISP.SYRIN IVPUSH ONE (07:12)
[2019-08-04] MEDS ORDERED: SODIUM CHLORIDE 0.9% 500 ML INFUS.BAG IV ONE (07:12)
[2019-08-04] MEDS ORDERED: morphine SULFATE 4 MG/ML VIAL ONE (07:48)
--- NOTE | 2019-08-04 08:15 | PDOC ---
Attending Attestation - Resident Resident Name: John Camargo - ED Attending Attestation I have performed the following: I have examined & evaluated the patient, The case was reviewed & discussed with the resident, I agree w/resident's findings & plan, Exceptions are as noted - HPI HPI: 08/04/19 08:11 29 F with h/o SCD presenting to ED with sickle cell pain. Pt reports pain that started in her legs and joints yesterday. She took her prescribed oxycodone wih no relief. Today, pt states that the pain has spread throughout her body, including her back and chest. This is typical of her usual sickle cell crises. Pt denies SOB. Denies F/C. No h/o acute chest syndrome. - Physicial Exam PE: 08/04/19 08:14 "GENERAL: Awake, alert, and fully oriented, in no acute distress. HEAD: No signs of trauma EYES: PERRLA, EOMI, sclera anicteric, conjunctiva clear ENT: Auricles normal inspection, hearing grossly normal, nares patent, oropharynx clear without exudates. Moist mucosa NECK: Nontender, no stepoffs, Normal ROM, supple, no lymphadenopathy, JVD, or masses LUNGS: Breath sounds equal, clear to auscultation bilaterally. No wheezes, and no crackles HEART: Regular rate and rhythm, normal S1 and S2, no murmurs, rubs or gallops ABDOMEN: Soft, nontender, normoactive bowel sounds. No guarding, no rebound. No masses EXTREMITIES: Normal range of motion, no edema. No clubbing or cyanosis. No cords, erythema, or tenderness NEUROLOGICAL: Cranial nerves II through XII intact. 5/5 strength and sensation in all extremities, Normal speech, normal gait, normal cerebellar function SKIN: Warm, Dry, normal turgor, no rashes or lesions noted. - Medical Decision Making 08/04/19 08:14 29 F with chest, back, and leg pain, consistent with previous sickle cell crises. Will evaluate for acute chest. - Labs, trop, LDH, retic count - CXR - IVF, pain control 08/04/19 11:23 Labs with mild hemolysis, pt retic'ing appropriately Pt reassessed - reports persistent pain despite morphine and dilaudid IV Will admit for further pain control, sickle cell crisis
[2019-08-04 08:37] LABS: BASO % 0.7 % (0-2.0); EOS % 0.7 % (0-4.5); HEMATOCRIT 27.3 % (32.4-45.2); HEMOGLOBIN 8.9 GM/dL (10.7-15.3); LYMPH % 15.4 % (8-40); MCH 21.1 pg (25.7-33.7); MCHC 32.6 g/dl (32.0-36.0); MEAN CELL VOLUME 64.8 fl (80-96); MEAN PLT VOLUME 8.5 fl (7.5-11.1); MONO % 3.2 % (3.8-10.2); PLATELET COUNT 122 K/MM3 (134-434); RBC 4.22 M/mm3 (3.60-5.2); RDW 18.2 % (11.6-15.6); WHITE BLOOD COUNT 8.8 K/mm3 (4.0-10.0)
[2019-08-04 09:15] LABS: BILIRUBIN,TOTAL 1.1 mg/dL (0.2-1); BLOOD UREA NITROGEN 5.3 mg/dL (7-18); CALCIUM 8.6 mg/dL (8.5-10.1); CREATININE 0.6 mg/dL (0.55-1.3); POTASSIUM 4.2 mmol/L (3.5-5.1); TOT PROT 7.8 g/dl (6.4-8.2)
[2019-08-04] MEDS ORDERED: HYDROmorphone HCL CARPU-JECT 2 MG/1 ML DISP.SYRIN IVPUSH ONE ×2 (09:27→14:35)
[2019-08-04] MEDS ORDERED: HYDROmorphone HCl 2 MG/ML VIAL ONE ×2 (09:33→15:15)
[2019-08-04 12:34] LABS: ANISOCYTOSIS 1+; OVALOCYTE 1+
--- NOTE | 2019-08-04 15:52 | HP ---
Admitting History and Physical - Primary Care Physician PCP: Clemencia Jenkins - Admission Chief Complaint: generalized pain History of Present Illness: Others' Prescriptions Patient Name: Maria Elena Ojeda Date: 1990 Address: [address] [place] [address] Sex: Female Rx Written Rx Dispensed Drug Quantity Days Supply Prescriber Name 03/18/2019 03/18/2019 oxycodone-acetaminophen 5-325 mg tab 12 3 Argenis Aleman) Maria Elena Ojeda is a 29 yo F w a pmh of sickle cell disease who presents with chest , back, leg and bilateral rib pain. The patient states she has never had an acute chest syndrome. She reports that she woke up yesterday morning and had severe right leg pain for which she took two oxycontin's which resolved most of her pain. Then she awoke in the middle of the night with really bad chest, back and bilateral rib pain. The patient took two more oxycontin but it didn't help her much and she couldn't fall back asleep so she came to the ER to be evaluated. She states this is how her standard pain crisis episodes work and she is sure she doesn't have an infection but rather just is experiencing a sickle cell pain crisis. She denies recent fevers, chills, infections, dysuria, frequency, urgency, headache, neck pain, blurry vision, weakness, numbness, tingling, or chills. Pt states she is on Oxycontin, however, unable to verify medication+dosage on HCS. Hematology consult. Urine toxicology History Source: Patient Limitations to Obtaining History: No Limitations - Past Medical History Heme/Onc: Yes: Sickle Cell Disease - Smoking History Smoking history: Never smoked Have you smoked in the past 12 months: No - Alcohol/Substance Use Hx Alcohol Use: Yes (occassionally) Home Medications - Allergies Allergies/Adverse Reactions: Allergies Allergy/AdvReac Type Severity Reaction Status Date / Time No Known Allergies Allergy Verified 08/04/19 08:37 - Home Medications Home Medications: Ambulatory Orders RX: Hydroxyurea 500 mg PO DAILY 08/04/19 Review of Systems - Review of Systems Constitutional: reports: Other (generalilzed pain) Eyes: reports: No Symptoms HENT: reports: No Symptoms Neck: reports: No Symptoms Cardiovascular: reports: No Symptoms Respiratory: reports: No Symptoms Gastrointestinal: reports: No Symptoms Genitourinary: reports: No Symptoms Breasts: reports: No Symptoms Reported Musculoskeletal: reports: Other (generalized pain) Integumentary: reports: No Symptoms Neurological: reports: No Symptoms Endocrine: reports: No Symptoms Hematology/Lymphatic: reports: No Symptoms Psychiatric: reports: No Symptoms Physical Examination Vital Signs: Vital Signs Temperature 98.6 F 08/04/19 15:23 Pulse Rate 90 08/04/19 15:23 Respiratory Rate 18 08/04/19 15:23 Blood Pressure 110/75 08/04/19 15:23 O2 Sat by Pulse Oximetry (%) 100 08/04/19 15:23 Constitutional: Yes: Well Nourished, Calm, Mild Distress Cardiovascular: Yes: Regular Rate and Rhythm Respiratory: Yes: Regular Gastrointestinal: Yes: Normal Bowel Sounds, Soft Renal/: Yes: WNL Musculoskeletal: Yes: WNL Extremities: Yes: WNL Edema: No Peripheral Pulses WNL: Yes Neurological: Yes: Alert, Oriented Psychiatric: Yes: Alert, Oriented Labs: CBC, BMP 08/04/19 08:25 08/04/19 08:25 Problem List - Problems (1) Sickle cell pain crisis Assessment/Plan: -Hematology consult -IVF-Increase to 150 cc/hr -D/c morphine -hydromorphone 2 mg Q4H PRN + Oxycodone+ acetaminophen -Folic acid 1 mg po daily Problems reviewed: Yes Code(s): D57.00 - HB-SS DISEASE WITH CRISIS, UNSPECIFIED Assessment/Plan see problem list
[2019-08-04] MEDS ORDERED: oxyCODONE HCL 5 MG TABLET PO PRN (15:53)
[2019-08-04] MEDS ORDERED: ACETAMINOPHEN 325 MG TABLET (FP) PO PRN (15:53)
[2019-08-04] MEDS ORDERED: SODIUM CHLORIDE 1,000 ML IV SCH (16:00)
[2019-08-04 18:11] VITALS: BMI 22.1
[2019-08-04] MEDS ORDERED: MORPHINE SULFATE 2 MG/ML VIAL IVPUSH PRN (20:18)
[2019-08-04] MEDS: DOCUSATE SODIUM 100 MG CAPSULE (FP) PO SCH (21:24)
[2019-08-05] MEDS: morphine SULFATE 4 MG/ML VIAL IVPUSH PRN ×3 (02:02→10:43)
[2019-08-05 02:55] LABS: COCAINE, UR NEGATIVE ng/ml (CUTOFF=300); METHADONE, UR NEGATIVE ng/ml (CUTOFF=300); PHENCYCLIDINE,URINE NEGATIVE ng/ml (CUTOFF=25); URINE AMPHETAMINES NEGATIVE ng/ml (CUTOFF=500); URINE BARBITURATES NEGATIVE ng/ml (CUTOFF=200); URINE BENZODIAZEPINES NEGATIVE ng/ml (CUTOFF=200)
[2019-08-05 03:04] LABS: OPIATES, URI POSITIVE ng/ml (CUTOFF=300)
[2019-08-05] MEDS ORDERED: PT OWN MED DRAWER 7, Y5N ONE (09:50)
[2019-08-05] MEDS: HYDROXYUREA 500 MG CAPSULE PO SCH (09:52)
--- NOTE | 2019-08-05 11:43 | EKG ---
Test Reason : Blood Pressure : / mmHG Vent. Rate : 072 BPM Atrial Rate : 072 BPM P-R Int : 126 ms QRS Dur : 078 ms QT Int : 400 ms P-R-T Axes : 068 072 064 degrees QTc Int : 438 ms NORMAL SINUS RHYTHM WITH SINUS ARRHYTHMIA WHEN COMPARED WITH ECG OF 18-MAR-2019 11:26, NO SIGNIFICANT CHANGE WAS FOUND Confirmed by KANG BOGGS MD ([id number]) on 08/05/2019 11:43:11 AM Referred By: Confirmed By:KANG BOGGS MD
--- NOTE | 2019-08-05 13:35 | PN ---
Progress Note, Physician Chief Complaint: Sickle cell crisis History of Present Illness: Still c/o generalized pain Received morphine 4 mg Mother at bedside See Youth Director Dr Samuels - Current Medication List Current Medications: Active Medications Acetaminophen (Tylenol -) 650 mg PO Q4H PRN PRN Reason: PAIN OR FEVER Last Admin: 08/04/19 22:00 Dose: 650 mg Docusate Sodium (Colace -) 300 mg PO HS [facility] Last Admin: 08/04/19 21:24 Dose: 300 mg Hydroxyurea (Hydrea -) 500 mg PO DAILY [facility] Last Admin: 08/05/19 09:52 Dose: 500 mg Sodium Chloride (Normal Saline -) 1,000 mls @ 125 mls/hr IV ASDIR SRIDHAR Last Admin: 08/04/19 17:02 Dose: 125 mls/hr Morphine Sulfate (Morphine Sulfate) 4 mg IVPUSH Q4H PRN PRN Reason: PAIN LEVEL 6-10 Last Admin: 08/05/19 10:43 Dose: 4 mg Oxycodone HCl (Roxicodone -) 5 mg PO Q6H PRN PRN Reason: PAIN LEVEL 6-10 - Objective Vital Signs: Vital Signs Temperature 98.8 F 08/05/19 06:54 Pulse Rate 90 08/05/19 06:54 Respiratory Rate 20 08/05/19 06:54 Blood Pressure 103/67 08/05/19 06:54 O2 Sat by Pulse Oximetry (%) 97 08/04/19 21:00 Constitutional: Yes: Well Nourished, No Distress, Calm Cardiovascular: Yes: Regular Rate and Rhythm Respiratory: Yes: Regular Gastrointestinal: Yes: Normal Bowel Sounds, Soft Musculoskeletal: Yes: WNL Extremities: Yes: WNL Edema: No Peripheral Pulses WNL: Yes Neurological: Yes: Alert, Oriented Psychiatric: Yes: Alert, Oriented Labs: CBC, BMP 08/04/19 08:25 08/04/19 08:25 Problem List - Problems (1) Sickle cell pain crisis Assessment/Plan: -Hematology consult -IVF-Increase to 150 cc/hr -D/c morphine -hydromorphone 2 mg Q4H PRN + Oxycodone+ acetaminophen -Folic acid 1 mg po daily Problems reviewed: Yes Code(s): D57.00 - HB-SS DISEASE WITH CRISIS, UNSPECIFIED Assessment/Plan see problem list
[2019-08-05] MEDS: HYDROmorphone HCl 2 MG/ML VIAL IVPUSH PRN ×2 (14:36→21:14)
[2019-08-05] MEDS: FOLIC ACID 1 MG TABLET (FP) PO SCH (14:36)
--- NOTE | 2019-08-05 17:14 | CONSULT ---
Consult Consult Specialty:: Hematology Reason for Consultation:: Sickle Cell Disease. Generalized pain. Possible VOC - History of Present Illness Chief Complaint: Generalized pain in back, ribs, chest and legs History of Present Illness: 29 y/o lady with a pmh of sickle cell disease (Follows with Dr. Tucker Westfall at [facility]) who presented with chest, back, leg and bilateral rib pain. The patient stated she has never had an acute chest syndrome. She reports that she woke up the day prior to this admission and had severe right leg pain for which she took two oxycontin's which resolved most of her pain. Then she awoke in the middle of the night with really bad chest, back and bilateral rib pain. The patient took two more oxycontin but it didn't help her much and she couldn't fall back asleep so she came to the ER to be evaluated. She stated this is how her standard pain crisis episodes work and she is sure she doesn't have an infection but rather just is experiencing a sickle cell pain crisis. She also mentioned has had an episode of fever (101) but denied productive cough or severe chest pain at the time of my visit. She indicated that most of her pain is in her legs. Morphine did not help but dilaudid is helping - History Source History Provided By: Patient Limitations to Obtaining History: No Limitations - Past Medical History ...LMP: 08/03/19 ...: No Heme/Onc: Yes: Sickle Cell Disease - Alcohol/Substance Use Hx Alcohol Use: Yes (occassionally) - Smoking History Smoking history: Never smoked Have you smoked in the past 12 months: No Home Medications - Allergies Allergies/Adverse Reactions: Allergies Allergy/AdvReac Type Severity Reaction Status Date / Time No Known Allergies Allergy Verified 08/04/19 08:37 - Home Medications Home Medications: Ambulatory Orders Hydroxyurea 500 mg PO DAILY 08/04/19 Family Medical History Other Family History: Sickle cell trait parents Review of Systems - Review of Systems Constitutional: reports: Other (Pain) Eyes: reports: No Symptoms HENT: reports: No Symptoms Neck: reports: No Symptoms Cardiovascular: reports: No Symptoms, Chest Pain Respiratory: reports: No Symptoms Gastrointestinal: reports: No Symptoms Genitourinary: reports: No Symptoms Breasts: reports: No Symptoms Reported Musculoskeletal: reports: No Symptoms, Back Pain Integumentary: reports: No Symptoms Neurological: reports: No Symptoms Endocrine: reports: No Symptoms Hematology/Lymphatic: reports: No Symptoms Physical Exam Vital Signs: Vital Signs Temperature 98.7 F 08/05/19 11:35 Pulse Rate 93 H 08/05/19 11:35 Respiratory Rate 20 08/05/19 11:35 Blood Pressure 99/61 08/05/19 11:35 O2 Sat by Pulse Oximetry (%) 97 08/05/19 09:00 Constitutional: Yes: Well Nourished, No Distress, Calm Eyes: Yes: WNL, Conjunctiva Clear, EOM Intact HENT: Yes: WNL, Atraumatic, Normocephalic Neck: Yes: WNL, Supple, Trachea Midline Cardiovascular: Yes: WNL, Regular Rate and Rhythm Respiratory: Yes: WNL, Regular, CTA Bilaterally Gastrointestinal: Yes: WNL, Normal Bowel Sounds, Soft ...Rectal Exam: Yes: Deferred Renal/: Yes: WNL Musculoskeletal: Yes: Back Pain Labs: CBC, BMP 08/04/19 08:25 08/04/19 08:25 Assessment/Plan 29 y/o lady with a history of sickle cell anemia under a care of Dr. Tucker Westfall at [facility] presented with generalized pain in her back, rib chest and legs suspicious for vaso-occlusive pain crisis. Recommend: 1) Pain management. Agree with Dilaudid as given per primary team 2) IVF 3) Hydroxyurea. L-Glutamine (Endari) has been suggested to the patient who will consult with her Assistant [employer] 4) If fever, panculture, CXR and consider prompt antibiotic therapy 5) Thank you for this consultation.
[2019-08-05] MEDS: DOCUSATE SODIUM 100 MG CAPSULE (FP) PO SCH (21:15)
[2019-08-06] MEDS: HYDROmorphone HCl 2 MG/ML VIAL IVPUSH PRN ×4 (03:45→20:40)
[2019-08-06] MEDS: SODIUM CHLORIDE 1,000 ML IV SCH ×3 (03:46→21:54)
[2019-08-06 07:43] LABS: BASO % 0.3 % (0-2.0); EOS % 0.5 % (0-4.5); HEMATOCRIT 21.7 % (32.4-45.2); HEMOGLOBIN 7.1 GM/dL (10.7-15.3); LYMPH % 25.9 % (8-40); MCH 21.1 pg (25.7-33.7); MCHC 32.6 g/dl (32.0-36.0); MEAN CELL VOLUME 64.6 fl (80-96); MEAN PLT VOLUME 9.1 fl (7.5-11.1); MONO % 4.1 % (3.8-10.2); NEUT % 69.2 % (42.8-82.8); PLATELET COUNT 82 K/MM3 (134-434); RBC 3.36 M/mm3 (3.60-5.2)
[2019-08-06 08:09] LABS: ALBUMIN 2.8 g/dl (3.4-5.0); CALCIUM 7.9 mg/dL (8.5-10.1); CREATININE 0.5 mg/dL (0.55-1.3); POTASSIUM 3.6 mmol/L (3.5-5.1); TOT PROT 6.3 g/dl (6.4-8.2)
[2019-08-06] MEDS ORDERED: PT OWN MED DRAWER 7, Y5N ONE (08:45)
[2019-08-06] MEDS: HYDROXYUREA 500 MG CAPSULE PO SCH (09:11)
[2019-08-06] MEDS: FOLIC ACID 1 MG TABLET (FP) PO SCH (09:12)
--- NOTE | 2019-08-06 10:50 | PN ---
Progress Note, Physician Chief Complaint: Sickle Cell Crisis History of Present Illness: Previous notes and events reviewed awake and alert NAD complain of B/L lower extremity and lower back pain denies chest pain or SOB - Current Medication List Current Medications: Active Medications Acetaminophen (Tylenol -) 650 mg PO Q4H PRN PRN Reason: PAIN OR FEVER Last Admin: 08/04/19 22:00 Dose: 650 mg Docusate Sodium (Colace -) 300 mg PO HS [facility] Last Admin: 08/05/19 21:15 Dose: 300 mg Folic Acid (Folic Acid -) 1 mg PO DAILY [facility] Last Admin: 08/06/19 09:12 Dose: 1 mg Hydromorphone HCl (Dilaudid Vial -) 2 mg IVPUSH Q4H PRN PRN Reason: PAIN LEVEL 7 - 10 Last Admin: 08/06/19 09:10 Dose: 2 mg Hydroxyurea (Hydrea -) 500 mg PO DAILY [facility] Last Admin: 08/06/19 09:11 Dose: 500 mg Sodium Chloride (Normal Saline -) 1,000 mls @ 150 mls/hr IV ASDIR [facility] Last Admin: 08/06/19 03:46 Dose: 150 mls/hr Oxycodone HCl (Roxicodone -) 5 mg PO Q6H PRN PRN Reason: PAIN LEVEL 4-6 - Objective Vital Signs: Vital Signs Temperature 98.0 F 08/06/19 05:00 Pulse Rate 96 H 08/06/19 05:00 Respiratory Rate 20 08/06/19 05:00 Blood Pressure 101/64 08/06/19 05:00 O2 Sat by Pulse Oximetry (%) 97 08/05/19 21:00 Constitutional: Yes: No Distress, Calm Eyes: Yes: Conjunctiva Clear HENT: Yes: Atraumatic Cardiovascular: Yes: Regular Rate and Rhythm Respiratory: Yes: Regular, CTA Bilaterally Gastrointestinal: Yes: Normal Bowel Sounds, Soft Musculoskeletal: Yes: Muscle Weakness Extremities: Yes: WNL Edema: No Neurological: Yes: Alert, Oriented Psychiatric: Yes: Alert, Oriented Labs: CBC, BMP 08/06/19 06:25 08/06/19 06:25 Problem List - Problems (1) Sickle cell pain crisis Assessment/Plan: -Hematology consult -IV Hydration -Pain control -O2 via NC -Folic Acid Code(s): D57.00 - HB-SS DISEASE WITH CRISIS, UNSPECIFIED (2) Anemia Assessment/Plan: -Hg 7.1 -downtrend possibly due to hemodilution? -will monitor Hg daily -transfuse for Hg <7.0 Code(s): D64.9 - ANEMIA, UNSPECIFIED Assessment/Plan see problem list dvt ppx
[2019-08-06] MEDS: DOCUSATE SODIUM 100 MG CAPSULE (FP) PO SCH (21:14)
--- NOTE | 2019-08-06 21:38 | PN ---
Progress Note (short form) - Note Progress Note: Patient seen and examined Pain scale --7 Was 10 on admission Feelsout of sorts today Fall in Hct noted Indices suggest possible Fe++ deficiency Fall in Hct - to some extent partly dilutional Had last transfusion at time of in 08/2018 Depending on retic and Hb/Hct may need to transfuse Last Vital Signs Temp Pulse Resp BP Pulse Ox 98.2 F 89 18 109/68 100 08/06/19 17:35 08/06/19 17:35 08/06/19 17:35 08/06/19 17:35 08/06/19 09:00 HEENT: ANGIE, EOM Intact Oropharynx: No thrush, No mucositis Cor: RSR, No murmurs, No gallops Lungs: Clear to P&A Abd: Soft, Normal bowel sounds, No organomegaly Ext:No significant edema Skin: No rashes, Integument intact CBC, BMP 08/06/19 06:25 08/06/19 06:25 Current Medications Generic Name Dose Route Start Last Admin Trade Name Diandra PRN Reason Stop Dose Admin Acetaminophen 650 mg 08/04/19 15:53 08/04/19 22:00 Tylenol - PO 650 mg Q4H PRN Administration PAIN OR FEVER Docusate Sodium 300 mg 08/04/19 22:00 08/06/19 21:14 Colace - PO 300 mg HS SRIDHAR Administration Folic Acid 1 mg 08/05/19 14:30 08/06/19 09:12 Folic Acid - PO 1 mg DAILY SRIDHAR Administration Hydromorphone HCl 2 mg 08/05/19 14:18 08/06/19 20:40 Dilaudid Vial - IVPUSH 2 mg Q4H PRN Administration PAIN LEVEL 7 - 10 Hydroxyurea 500 mg 08/05/19 10:00 08/06/19 09:11 Hydrea - PO 500 mg DAILY SRIDHAR Administration Sodium Chloride 1,000 mls @ 150 mls/hr 08/05/19 13:35 08/06/19 13:20 Normal Saline - IV 150 mls/hr ASDIR SRIDHAR Administration Oxycodone HCl 5 mg 08/04/19 15:53 Roxicodone - PO Q6H PRN PAIN LEVEL 4-6 Impression: Sickle cell painful crisis Fall in Hct continue hydration, analgesics Check Hct, retic count ? need for transfusion pending labs 08/07.
[2019-08-07] MEDS: SODIUM CHLORIDE 1,000 ML IV SCH (05:44)
[2019-08-07 08:07] LABS: BASO % 0.5 % (0-2.0); HEMATOCRIT 19.7 % (32.4-45.2); LYMPH % 26.2 % (8-40); MCH 21.1 pg (25.7-33.7); MEAN PLT VOLUME 8.8 fl (7.5-11.1); MONO % 3.8 % (3.8-10.2); NEUT % 68.5 % (42.8-82.8); PLATELET COUNT 74 K/MM3 (134-434); RBC 3.08 M/mm3 (3.60-5.2); RDW 18.1 % (11.6-15.6); WHITE BLOOD COUNT 5.5 K/mm3 (4.0-10.0)
[2019-08-07 08:36] LABS: MAGNESIUM 1.8 mg/dL (1.8-2.4)
[2019-08-07 08:40] LABS: HEMOGLOBIN 6.5 GM/dL (10.7-15.3)
[2019-08-07 08:41] LABS: ALBUMIN 2.7 g/dl (3.4-5.0); BILIRUBIN,TOTAL 1.1 mg/dL (0.2-1); CALCIUM 7.9 mg/dL (8.5-10.1); CREATININE 0.4 mg/dL (0.55-1.3); POTASSIUM 3.3 mmol/L (3.5-5.1); TOT PROT 6.1 g/dl (6.4-8.2)
[2019-08-07 09:06] LABS: BLOOD UREA NITROGEN 2.8 mg/dL (7-18)
[2019-08-07] MEDS: FOLIC ACID 1 MG TABLET (FP) PO SCH (09:48)
[2019-08-07] MEDS: HYDROXYUREA 500 MG CAPSULE PO SCH (09:48)
--- NOTE | 2019-08-07 10:09 | PN ---
Progress Note, Physician - Current Medication List Current Medications: Active Medications Acetaminophen (Tylenol -) 650 mg PO Q4H PRN PRN Reason: PAIN OR FEVER Last Admin: 08/04/19 22:00 Dose: 650 mg Docusate Sodium (Colace -) 300 mg PO HS [facility] Last Admin: 08/06/19 21:14 Dose: 300 mg Folic Acid (Folic Acid -) 1 mg PO DAILY [facility] Last Admin: 08/07/19 09:48 Dose: 1 mg Hydromorphone HCl (Dilaudid Vial -) 2 mg IVPUSH Q4H PRN PRN Reason: PAIN LEVEL 7 - 10 Last Admin: 08/06/19 20:40 Dose: 2 mg Hydroxyurea (Hydrea -) 500 mg PO DAILY [facility] Last Admin: 08/07/19 09:48 Dose: 500 mg Sodium Chloride (Normal Saline -) 1,000 mls @ 150 mls/hr IV ASDIR [facility] Last Admin: 08/07/19 05:44 Dose: 150 mls/hr Oxycodone HCl (Roxicodone -) 5 mg PO Q6H PRN PRN Reason: PAIN LEVEL 4-6 - Objective Vital Signs: Vital Signs Temperature 98.5 F 08/07/19 07:07 Pulse Rate 92 H 08/07/19 07:07 Respiratory Rate 20 08/07/19 07:07 Blood Pressure 115/77 08/07/19 07:07 O2 Sat by Pulse Oximetry (%) 100 08/06/19 22:00 Cardiovascular: Yes: Regular Rate and Rhythm Respiratory: Yes: Regular, CTA Bilaterally Gastrointestinal: Yes: Normal Bowel Sounds, Soft Labs: CBC, BMP 08/07/19 07:10 08/07/19 07:10 Assessment/Plan - Problems (1) Sickle cell pain crisis Assessment/Plan: -Hematology consult -IV Hydration -Pain control -O2 via NC -Folic Acid Code(s): D57.00 - HB-SS DISEASE WITH CRISIS, UNSPECIFIED (2) Anemia Assessment/Plan: -Hg 6.5--one unit -will monitor Hg daily -transfuse for Hg <7.0 Code(s): D64.9 - ANEMIA, UNSPECIFIED
[2019-08-07] MEDS: HYDROmorphone HCl 2 MG/ML VIAL IVPUSH PRN (11:46)
--- NOTE | 2019-08-07 19:09 | PN ---
Progress Note (short form) - Note Progress Note: Hematology and oncology follow up Subjective: Patient seen and examined at the bedside. No events overnight. No new complaints. Patient states that her pain is ~5/10 and improved today. Objective: Vital Signs Temperature 98.4 F 08/07/19 14:00 Pulse Rate 77 08/07/19 14:00 Respiratory Rate 18 08/07/19 14:00 Blood Pressure 106/64 08/07/19 14:00 O2 Sat by Pulse Oximetry (%) 100 08/07/19 10:00 Physical exam: Gen.: patient found lying in bed. Well appearing. Awake, alert. Lungs: clear to auscultation bilaterally down to the bases. Heart: regular rate and rhythm. S1, S2 heard. No murmurs gallops or rubs heard. Abdomen: soft, nontender, nondistended. Bowel sounds heard. Extremities: no peripheral edema noted. No bruising, swelling, erythema or warmth of extremities noted. neuro: patient A&O x3. Moving all four limbs spontaneously. CBC, BMP 08/07/19 07:10 08/07/19 07:10 Assessment and plan: The patient is a 29-year-old female with a past medical history of sickle cell disease was admitted for the treatment of acute sickle cell crisis. #Acute sickle cell crisis -pain improved today -consider de-escalating pain control regimen as she is not requiring as much anymore -continue IV hydration -suggest begin DC planning #Acute hemoglobin drop -hemoglobin dropped from 7.1 to 6.5 overnight -status post one unit PRBC -maintain normal transfusion threshold -follow-up post transfusion CBC -monitor CBC daily
--- NOTE | 2019-08-07 21:07 | PN ---
Progress Note (short form) - Note Progress Note: Subjective: Doing much better. Objective: Vital Signs Temperature 98.4 F 08/07/19 14:00 Pulse Rate 77 08/07/19 14:00 Respiratory Rate 18 08/07/19 14:00 Blood Pressure 106/64 08/07/19 14:00 O2 Sat by Pulse Oximetry (%) 100 08/07/19 10:00 Physical exam: Gen.: patient found lying in bed. Well appearing. Awake, alert. Lungs: clear to auscultation bilaterally down to the bases. Heart: regular rate and rhythm. S1, S2 heard. No murmurs gallops or rubs heard. Abdomen: soft, nontender, nondistended. Bowel sounds heard. Extremities: no peripheral edema noted. No bruising, swelling, erythema or warmth of extremities noted. neuro: patient A&O x3. Moving all four limbs spontaneously. Current Medications Acetaminophen (Tylenol -) 650 mg PO Q4H PRN PRN Reason: PAIN OR FEVER Last Admin: 08/04/19 22:00 Dose: 650 mg Docusate Sodium (Colace -) 300 mg PO HS [facility] Last Admin: 08/06/19 21:14 Dose: 300 mg Folic Acid (Folic Acid -) 1 mg PO DAILY [facility] Last Admin: 08/07/19 09:48 Dose: 1 mg Hydromorphone HCl (Dilaudid Vial -) 2 mg IVPUSH Q4H PRN PRN Reason: PAIN LEVEL 7 - 10 Last Admin: 08/07/19 11:46 Dose: 2 mg Hydroxyurea (Hydrea -) 500 mg PO DAILY [facility] Last Admin: 08/07/19 09:48 Dose: 500 mg Sodium Chloride (Normal Saline -) 1,000 mls @ 150 mls/hr IV ASDIR [facility] Last Admin: 08/07/19 05:44 Dose: 150 mls/hr Oxycodone HCl (Roxicodone -) 5 mg PO Q6H PRN PRN Reason: PAIN LEVEL 4-6 08/07/19 07:10 08/07/19 07:10 Assessment and plan: 29 y/o lady with a past medical history of sickle cell disease was admitted for the treatment of acute sickle cell crisis. 1) VOC: Improving. Need for opiates decreasing 2) Hb 6.5. Transfuse to Hb above 7. Folic acid.
[2019-08-07] MEDS: DOCUSATE SODIUM 100 MG CAPSULE (FP) PO SCH (21:40)
[2019-08-08] MEDS: SODIUM CHLORIDE 1,000 ML IV SCH ×2 (01:47→08:54)
[2019-08-08 07:37] VITALS: TEMP 98.3
--- NOTE | 2019-08-08 09:06 | PN ---
Progress Note, Physician Chief Complaint: COMFORTABLE NAD WOULD LIKE TO GO HOME - Current Medication List Current Medications: Active Medications Acetaminophen (Tylenol -) 650 mg PO Q4H PRN PRN Reason: PAIN OR FEVER Last Admin: 08/04/19 22:00 Dose: 650 mg Docusate Sodium (Colace -) 300 mg PO HS [facility] Last Admin: 08/07/19 21:40 Dose: 300 mg Folic Acid (Folic Acid -) 1 mg PO DAILY [facility] Last Admin: 08/07/19 09:48 Dose: 1 mg Hydromorphone HCl (Dilaudid Vial -) 2 mg IVPUSH Q4H PRN PRN Reason: PAIN LEVEL 7 - 10 Last Admin: 08/07/19 11:46 Dose: 2 mg Hydroxyurea (Hydrea -) 500 mg PO DAILY [facility] Last Admin: 08/07/19 09:48 Dose: 500 mg Sodium Chloride (Normal Saline -) 1,000 mls @ 150 mls/hr IV ASDIR [facility] Last Admin: 08/08/19 08:54 Dose: 150 mls/hr Oxycodone HCl (Roxicodone -) 5 mg PO Q6H PRN PRN Reason: PAIN LEVEL 4-6 - Objective Vital Signs: Vital Signs Temperature 98.3 F 08/08/19 07:35 Pulse Rate 69 08/08/19 07:35 Respiratory Rate 20 08/08/19 07:35 Blood Pressure 105/76 08/08/19 07:35 O2 Sat by Pulse Oximetry (%) 100 08/07/19 22:00 Constitutional: Yes: No Distress Cardiovascular: Yes: Regular Rate and Rhythm Respiratory: Yes: WNL Gastrointestinal: Yes: WNL Labs: CBC, BMP 08/07/19 07:10 08/07/19 07:10 Problem List - Problems (1) Sickle cell pain crisis Code(s): D57.00 - HB-SS DISEASE WITH CRISIS, UNSPECIFIED (2) Anemia Code(s): D64.9 - ANEMIA, UNSPECIFIED Assessment/Plan DENIES PAIN OR FEVERS PLAN IS TO WAIT FOR CBC TODAY HEME FOLLOW UP IRON DEF START IRON SUPP IV FERROUS NOW OUTPATIENT F/U
[2019-08-08] MEDS ORDERED: FERRIC CARBOXYMALTOSE 750 MG in SODIUM CHLORIDE 250 ML IVPB ONE (09:07)
[2019-08-08] MEDS ORDERED: PT OWN MED DRAWER 7, Y5N ONE (09:46)
[2019-08-08] MEDS: HYDROXYUREA 500 MG CAPSULE PO SCH (09:48)
[2019-08-08] MEDS: FOLIC ACID 1 MG TABLET (FP) PO SCH (09:48)
[2019-08-08 11:55] LABS: HEMATOCRIT 25.6 % (32.4-45.2); HEMOGLOBIN 8.5 GM/dL (10.7-15.3); MCH 22.3 pg (25.7-33.7); MCHC 33.1 g/dl (32.0-36.0); MEAN CELL VOLUME 67.4 fl (80-96); MEAN PLT VOLUME 8.7 fl (7.5-11.1); PLATELET COUNT 92 K/MM3 (134-434); RDW 21.5 % (11.6-15.6); WHITE BLOOD COUNT 5.8 K/mm3 (4.0-10.0)
[2019-08-08 12:29] LABS: BLOOD UREA NITROGEN 3.2 mg/dL (7-18); CALCIUM 7.8 mg/dL (8.5-10.1); CREATININE 0.5 mg/dL (0.55-1.3); POTASSIUM 3.6 mmol/L (3.5-5.1)
--- NOTE | 2019-08-08 12:38 | DS ---
Physical Examination Vital Signs: Vital Signs Temperature 98.3 F 08/08/19 07:35 Pulse Rate 69 08/08/19 07:35 Respiratory Rate 20 08/08/19 07:35 Blood Pressure 105/76 08/08/19 07:35 O2 Sat by Pulse Oximetry (%) 100 08/07/19 22:00 Findings/Remarks: Laboratory Tests 08/04/19 08/04/19 08/04/19 08:25 08:25 08:25 WBC 8.8 RBC 4.22 Hgb 8.9 L Hct 27.3 L MCV 64.8 L MCH 21.1 L MCHC 32.6 RDW 18.2 H Plt Count 122 L MPV 8.5 Absolute Neuts (auto) 7.0 Neutrophils % 80.0 D Neutrophils % (Manual) 73.2 Band Neutrophils % 3.1 Lymphocytes % 15.4 D Lymphocytes % (Manual) 14.4 Monocytes % 3.2 L Monocytes % (Manual) 5 Eosinophils % 0.7 Eosinophils % (Manual) 0.0 Basophils % 0.7 Basophils % (Manual) 0.0 Myelocytes % (Man) 0 Promyelocytes % (Man) 0 Blast Cells % (Manual) 0 Nucleated RBC % 1 H Metamyelocytes 3 H Manual Slide Review Platelet Comment Anisocytosis 1+ Microcytosis 1+ Ovalocytes 1+ Retic Count Sickle Cell Screen Sodium 142 Potassium 4.2 Chloride 111 H Carbon Dioxide 25 Anion Gap 7 L BUN 5.3 L Creatinine 0.6 Est GFR (CKD-EPI)AfAm 142.76 Est GFR (CKD-EPI)NonAf 123.17 Random Glucose 82 Calcium 8.6 Magnesium Iron TIBC Iron Saturation Unsaturated IBC Ferritin Total Bilirubin 1.1 H AST 50 H ALT 16 Alkaline Phosphatase 87 LD Total 551 H 531 H Troponin I Total Protein 7.8 Albumin 4.0 LDL 1 Fraction 23.0 LDL 2 Fraction 26.0 LDL 3 Fraction 27.0 LDL 4 Fraction 15.0 H LDL 5 Fraction 9.0 Urine HCG, Qual Opiates Screen Methadone Screen Barbiturate Screen Phencyclidine Screen Ur Amphetamines Screen MDMA (Ecstasy) Screen Benzodiazepines Screen Cocaine Screen U Marijuana (THC) Screen Blood Type Antibody Screen Antibody Identification Antigen Identification Crossmatch 08/04/19 08/04/19 08/04/19 08:25 08:25 08:25 WBC RBC Hgb Hct MCV MCH MCHC RDW Plt Count MPV Absolute Neuts (auto) Neutrophils % Neutrophils % (Manual) Band Neutrophils % Lymphocytes % Lymphocytes % (Manual) Monocytes % Monocytes % (Manual) Eosinophils % Eosinophils % (Manual) Basophils % Basophils % (Manual) Myelocytes % (Man) Promyelocytes % (Man) Blast Cells % (Manual) Nucleated RBC % Metamyelocytes Manual Slide Review Platelet Comment Anisocytosis Microcytosis Ovalocytes Retic Count 4.50 H D Sickle Cell Screen Positive Sodium Potassium Chloride Carbon Dioxide Anion Gap BUN Creatinine Est GFR (CKD-EPI)AfAm Est GFR (CKD-EPI)NonAf Random Glucose Calcium Magnesium Iron TIBC Iron Saturation Unsaturated IBC Ferritin Total Bilirubin AST ALT Alkaline Phosphatase LD Total Troponin I < 0.02 Total Protein Albumin LDL 1 Fraction LDL 2 Fraction LDL 3 Fraction LDL 4 Fraction LDL 5 Fraction Urine HCG, Qual Opiates Screen Methadone Screen Barbiturate Screen Phencyclidine Screen Ur Amphetamines Screen MDMA (Ecstasy) Screen Benzodiazepines Screen Cocaine Screen U Marijuana (THC) Screen Blood Type Antibody Screen Antibody Identification Antigen Identification Crossmatch 08/05/19 08/05/19 08/06/19 02:08 02:08 06:25 WBC 7.0 RBC 3.36 L Hgb 7.1 L Hct 21.7 L D MCV 64.6 L MCH 21.1 L MCHC 32.6 RDW 18.0 H Plt Count 82 L D MPV 9.1 Absolute Neuts (auto) 4.8 Neutrophils % 69.2 Neutrophils % (Manual) Band Neutrophils % Lymphocytes % 25.9 D Lymphocytes % (Manual) Monocytes % 4.1 Monocytes % (Manual) Eosinophils % 0.5 Eosinophils % (Manual) Basophils % 0.3 Basophils % (Manual) Myelocytes % (Man) Promyelocytes % (Man) Blast Cells % (Manual) Nucleated RBC % 0 Metamyelocytes Manual Slide Review Platelet Comment Anisocytosis Microcytosis Ovalocytes Retic Count Sickle Cell Screen Sodium Potassium Chloride Carbon Dioxide Anion Gap BUN Creatinine Est GFR (CKD-EPI)AfAm Est GFR (CKD-EPI)NonAf Random Glucose Calcium Magnesium Iron TIBC Iron Saturation Unsaturated IBC Ferritin Total Bilirubin AST ALT Alkaline Phosphatase LD Total Troponin I Total Protein Albumin LDL 1 Fraction LDL 2 Fraction LDL 3 Fraction LDL 4 Fraction LDL 5 Fraction Urine HCG, Qual Negative Opiates Screen Positive A* Methadone Screen Negative Barbiturate Screen Negative Phencyclidine Screen Negative Ur Amphetamines Screen Negative MDMA (Ecstasy) Screen Negative Benzodiazepines Screen Negative Cocaine Screen Negative U Marijuana (THC) Screen Negative Blood Type Antibody Screen Antibody Identification Antigen Identification Crossmatch 08/06/19 08/07/19 08/07/19 06:25 07:10 07:10 WBC RBC Hgb Hct MCV MCH MCHC RDW Plt Count MPV Absolute Neuts (auto) Neutrophils % Neutrophils % (Manual) Band Neutrophils % Lymphocytes % Lymphocytes % (Manual) Monocytes % Monocytes % (Manual) Eosinophils % Eosinophils % (Manual) Basophils % Basophils % (Manual) Myelocytes % (Man) Promyelocytes % (Man) Blast Cells % (Manual) Nucleated RBC % Metamyelocytes Manual Slide Review Platelet Comment Anisocytosis Microcytosis Ovalocytes Retic Count 3.40 H D Sickle Cell Screen Sodium 138 141 Potassium 3.6 3.3 L Chloride 109 H 111 H Carbon Dioxide 24 24 Anion Gap 5 L 7 L BUN 2.0 L* 2.8 L* Creatinine 0.5 L 0.4 L Est GFR (CKD-EPI)AfAm 151.59 163.13 Est GFR (CKD-EPI)NonAf 130.79 140.75 Random Glucose 88 81 Calcium 7.9 L 7.9 L Magnesium Iron 35 L TIBC Iron Saturation Unsaturated IBC Ferritin Total Bilirubin 1.0 1.1 H AST 25 16 ALT 14 13 Alkaline Phosphatase 80 74 LD Total 372 H Troponin I Total Protein 6.3 L 6.1 L Albumin 2.8 L 2.7 L LDL 1 Fraction LDL 2 Fraction LDL 3 Fraction LDL 4 Fraction LDL 5 Fraction Urine HCG, Qual Opiates Screen Methadone Screen Barbiturate Screen Phencyclidine Screen Ur Amphetamines Screen MDMA (Ecstasy) Screen Benzodiazepines Screen Cocaine Screen U Marijuana (THC) Screen Blood Type Antibody Screen Antibody Identification Antigen Identification Crossmatch 08/07/19 08/07/19 08/07/19 07:10 07:10 11:03 WBC 5.5 RBC 3.08 L Hgb 6.5 L* Hct 19.7 L MCV 64.0 L MCH 21.1 L MCHC 33.0 RDW 18.1 H Plt Count 74 L MPV 8.8 Absolute Neuts (auto) 3.8 Neutrophils % 68.5 Neutrophils % (Manual) Band Neutrophils % Lymphocytes % 26.2 Lymphocytes % (Manual) Monocytes % 3.8 Monocytes % (Manual) Eosinophils % 1.0 D Eosinophils % (Manual) Basophils % 0.5 Basophils % (Manual) Myelocytes % (Man) Promyelocytes % (Man) Blast Cells % (Manual) Nucleated RBC % 0 Metamyelocytes Manual Slide Review Platelet Comment Anisocytosis Microcytosis Ovalocytes Retic Count Sickle Cell Screen Sodium Potassium Chloride Carbon Dioxide Anion Gap BUN Creatinine Est GFR (CKD-EPI)AfAm Est GFR (CKD-EPI)NonAf Random Glucose Calcium Magnesium 1.8 Iron 36 L TIBC 220 L Iron Saturation 16 L Unsaturated IBC 184 L Ferritin 115.7 Total Bilirubin AST ALT Alkaline Phosphatase LD Total Troponin I Total Protein Albumin LDL 1 Fraction LDL 2 Fraction LDL 3 Fraction LDL 4 Fraction LDL 5 Fraction Urine HCG, Qual Opiates Screen Methadone Screen Barbiturate Screen Phencyclidine Screen Ur Amphetamines Screen MDMA (Ecstasy) Screen Benzodiazepines Screen Cocaine Screen U Marijuana (THC) Screen Blood Type B POSITIVE Antibody Screen Positive Antibody Identification Anti-e Antigen Identification E Antigen - NEGATIVE Crossmatch See Detail 08/08/19 08/08/19 11:20 11:20 WBC 5.8 RBC 3.80 Hgb 8.5 L Hct 25.6 L D MCV 67.4 L MCH 22.3 L MCHC 33.1 RDW 21.5 H Plt Count 92 L D MPV 8.7 Absolute Neuts (auto) Neutrophils % Neutrophils % (Manual) Band Neutrophils % Lymphocytes % Lymphocytes % (Manual) Monocytes % Monocytes % (Manual) Eosinophils % Eosinophils % (Manual) Basophils % Basophils % (Manual) Myelocytes % (Man) Promyelocytes % (Man) Blast Cells % (Manual) Nucleated RBC % Metamyelocytes Manual Slide Review No clotting dtected Platelet Comment No clumping noted Anisocytosis Microcytosis Ovalocytes Retic Count Sickle Cell Screen Sodium 142 Potassium 3.6 Chloride 112 H Carbon Dioxide 23 Anion Gap 8 BUN 3.2 L Creatinine 0.5 L Est GFR (CKD-EPI)AfAm 151.59 Est GFR (CKD-EPI)NonAf 130.79 Random Glucose 94 Calcium 7.8 L Magnesium Iron TIBC Iron Saturation Unsaturated IBC Ferritin Total Bilirubin AST ALT Alkaline Phosphatase LD Total Troponin I Total Protein Albumin LDL 1 Fraction LDL 2 Fraction LDL 3 Fraction LDL 4 Fraction LDL 5 Fraction Urine HCG, Qual Opiates Screen Methadone Screen Barbiturate Screen Phencyclidine Screen Ur Amphetamines Screen MDMA (Ecstasy) Screen Benzodiazepines Screen Cocaine Screen U Marijuana (THC) Screen Blood Type Antibody Screen Antibody Identification Antigen Identification Crossmatch Active Medications Generic Name Dose Route Start Last Admin Trade Name Freq PRN Reason Stop Dose Admin Acetaminophen 650 mg 08/04/19 15:53 08/04/19 22:00 Tylenol - PO 650 mg Q4H PRN Administration PAIN OR FEVER Docusate Sodium 300 mg 08/04/19 22:00 08/07/19 21:40 Colace - PO 300 mg HS SRIDHAR Administration Folic Acid 1 mg 08/05/19 14:30 08/08/19 09:48 Folic Acid - PO 1 mg DAILY SRIDHAR Administration Hydroxyurea 500 mg 08/05/19 10:00 08/08/19 09:48 Hydrea - PO 500 mg DAILY SRIDHAR Administration Sodium Chloride 1,000 mls @ 150 mls/hr 08/05/19 13:35 08/08/19 08:54 Normal Saline - IV 150 mls/hr ASDIR SRIDHAR Administration Oxycodone HCl 5 mg 08/04/19 15:53 Roxicodone - PO Q6H PRN PAIN LEVEL 4-6 . Constitutional: Yes: No Distress, Calm Eyes: Yes: Conjunctiva Clear HENT: Yes: Atraumatic Neck: Yes: Supple Cardiovascular: Yes: Regular Rate and Rhythm Respiratory: Yes: Regular, CTA Bilaterally Gastrointestinal: Yes: Normal Bowel Sounds, Soft Musculoskeletal: Yes: WNL Extremities: Yes: WNL Edema: No Neurological: Yes: Alert, Oriented Psychiatric: Yes: Alert, Oriented Labs: CBC, BMP 08/08/19 11:20 08/08/19 11:20 Discharge Summary Problems reviewed: Yes Reason For Visit: SICKEL CELL CRISIS Current Active Problems Sickle cell anemia with pain (Acute) Sickle cell pain crisis (Acute) Hospital Course: Maria Elena Ojeda is a 29 yo F w a pmh of sickle cell disease who presents with chest , back, leg and bilateral rib pain. The patient states she has never had an acute chest syndrome. She reports that she woke up yesterday morning and had severe right leg pain for which she took two oxycontin's which resolved most of her pain. Then she awoke in the middle of the night with really bad chest, back and bilateral rib pain. The patient took two more oxycontin but it didn't help her much and she couldn't fall back asleep so she came to the ER to be evaluated. She states this is how her standard pain crisis episodes work and she is sure she doesn't have an infection but rather just is experiencing a sickle cell pain crisis. She denies recent fevers, chills, infections, dysuria, frequency, urgency, headache, neck pain, blurry vision, weakness, numbness, tingling, or chills. Followed by hematology while in patient. During hospitalization Hg 6.5 and received 1U PRBC with good effect with repeat Hg 8.5. Condition: Stable - Instructions Diet, Activity, Other Instructions: follow up with PMD in 1 week after discharge follow up with pencil sorter as scheduled stay hydrated and increase fluid intake continue with folic acid daily return to ER if develop severe pain, respiratory distress, chest pain, fever or chills Referrals: Clemencia Jenkins [Primary Care Provider] - Disposition: HOME - Home Medications Comprehensive Discharge Medication List: Ambulatory Orders Hydroxyurea 500 mg PO DAILY 08/04/19 Acetaminophen [Tylenol .Regular Strength -] 650 mg PO Q4H PRN tablet 08/08/19 Docusate Sodium [Colace -] 300 mg PO HS #90 capsule 08/08/19 Folic Acid - 1 mg PO DAILY #30 tablet 08/08/19 Hydroxyurea [Hydrea 500Mg Capsule -] 500 mg PO DAILY capsule 08/08/19
[2019-08-08 15:06] VITALS: BP 116/75; PULSE 84
[2019-08-09 17:09] LABS: HGB SOLUBILITY Positive (Negative); Hgb C 0 % (0.0); Hgb F 1.5 % (0.0-2.0); Hgb S 92.5 % (0.0)
[2019-08-10 18:07] LABS: HGB SOLUBILITY Positive (Negative); Hgb C 0 % (0.0); Hgb F 1.5 % (0.0-2.0); Hgb S 92.1 % (0.0)
== END 2019-08-08 15:17 | disposition home or self-care (01) | DRG 662 ==
LOC: JER 06:05 → J8W 17:57
PROVIDERS: ADMIT Family Medicine; ATTEND Family Medicine
PROC: 30233N1 Transfusion of Nonautologous Red Blood Cells into Peripheral Vein, Percutaneous Approach (ICD-10-PCS; principal; 2019-08-07)
DX: D57.00 Hb-SS disease with crisis, unspecified (principal); D64.9 Anemia, unspecified
CPT/HCPCS: 36415; 36430; 36511; 71046-TC-FY; 80048; 80053; 80307; 82728; 83021; 83540; 83550; 83615; 83625; 83735; 84484; 84703; 85025; 85027; 85044; 85660; 86850; 86870; 86900; 86901; 86902; 86922; 93005; 93010; 99285-25; J1439; J7030; J8999; P9038; P9058

== ENCOUNTER 2022-02-07 05:25 | Inpatient (IN) | payer OTHER ==
[2022-02-07] MEDS ORDERED: morphine SULFATE IMMEDIATE RELEASE 30 MG TAB PO ONE (06:19)
[2022-02-07] MEDS ORDERED: morphine SULFATE IMMEDIATE RELEASE 30 MG TAB ONE (06:20)
[2022-02-07] MEDS ORDERED: HYDROmorphone HCL CARPU-JECT 2 MG/1 ML DISP.SYRIN IVPUSH ONE ×3 (07:54→11:06)
[2022-02-07] MEDS ORDERED: DOCUSATE SODIUM 100 MG CAPSULE (FP) PO ONE (07:55)
[2022-02-07] MEDS ORDERED: SODIUM CHLORIDE 0.9% 500 ML INFUS.BAG IV ONE (08:02)
[2022-02-07] MEDS ORDERED: HYDROmorphone HCl 2 MG/ML VIAL ONE ×3 (08:30→14:03)
[2022-02-07 09:10] LABS: HEMATOCRIT 27.4 % (32.4-45.2); HEMOGLOBIN 9.1 GM/dL (10.7-15.3); MCH 22.7 pg (25.7-33.7); MCHC 33.2 g/dl (32.0-36.0); MEAN CELL VOLUME 68.5 fl (80-96); MEAN PLT VOLUME 8.9 fl (7.5-11.1); PLATELET COUNT 290 10^3/uL (134-434); RBC 4.01 M/mm3 (3.60-5.2); RDW 18.4 % (11.6-15.6); RETICULOCYTES 4.81 % (0.5-1.5); WHITE BLOOD COUNT 6.7 K/mm3 (4.0-10.0)
[2022-02-07 09:30] LABS: CALCIUM 8.6 mg/dL (8.5-10.1)
[2022-02-07] MEDS ORDERED: ONDANSETRON 4 MG/2 ML VIAL IVPUSH ONE (09:30)
[2022-02-07] MEDS ORDERED: ONDANSETRON 4 MG/2 ML VIAL ONE (09:30)
[2022-02-07 09:34] LABS: CREATININE 0.5 mg/dL (0.55-1.3)
[2022-02-07 09:35] LABS: BILIRUBIN,TOTAL 0.9 mg/dL (0.2-1)
[2022-02-07 09:36] LABS: TOT PROT 8.7 g/dl (6.4-8.2)
[2022-02-07] MEDS ORDERED: HYDROmorphone HCl 2 MG/ML VIAL IVPUSH PRN (10:29)
[2022-02-07] MEDS ORDERED: CIPROFLOXACIN 500 MG TABLET (RESTRICTED TO ID) PO SCH (10:45)
[2022-02-07 11:28] LABS: HELMET CELLS 1+; TARGET CELLS 1+
[2022-02-07 11:33] LABS: ANISOCYTOSIS 2+; MACROCYTOSIS 1+; OVALOCYTE 2+; SICKELED CELLS 1+
[2022-02-07 11:34] LABS: PLATELET ESTIMATE ADEQUATE
[2022-02-07] MEDS: LACTATED RINGERS SOLUTION 1,000 ML/1,000 ML INFUS.BAG IV SCH ×2 (14:10→18:54)
[2022-02-07] MEDS: ACETAMINOPHEN 325 MG TABLET (FP) PO PRN ×2 (15:32→23:09)
[2022-02-07] MEDS: oxyCODONE HCL 5 MG TABLET PO PRN ×2 (15:34→23:08)
[2022-02-07] MEDS: HYDROmorphone HCl 2 MG/ML VIAL IVPB PRN ×2 (18:22→21:31)
[2022-02-07] MEDS ORDERED: PROCHLORPERAZINE INJECTION 10 MG/2 ML VIAL IVPB ONE (19:44)
[2022-02-07 21:25] LABS: EPI CELLS >36 /uL (0-25.1); HYALINE CASTS 5 /uL (0-3.1); URINE APPEARANCE CLOUDY; URINE BACTERIA 132 /uL (0-1359); URINE BILIRUBIN NEGATIVE (NEGATIVE); URINE COLOR YELLOW; URINE GLUCOSE (UA) NEGATIVE (NEGATIVE); URINE KETONE NEGATIVE (NEGATIVE); URINE LEUK ESTERASE 2+ (NEGATIVE); URINE NITRITE NEGATIVE (NEGATIVE); URINE PROTEIN NEGATIVE (NEGATIVE); URINE RBC 6 /uL (0-23.9); URINE UROBILINOGEN 0.2 mg/dL (0.2-1.0); URINE WBC 555 /uL (0-25.8)
[2022-02-07] MEDS: DOCUSATE SODIUM 100 MG CAPSULE (FP) PO SCH (21:33)
[2022-02-08] MEDS: HYDROmorphone HCl 2 MG/ML VIAL IVPB PRN ×4 (01:19→20:21)
[2022-02-08] MEDS ORDERED: HYDROXYUREA 500 MG CAPSULE PO SCH (10:00)
[2022-02-08] MEDS ORDERED: ONDANSETRON 4 MG/2 ML VIAL IVPUSH ONE (10:30)
[2022-02-08] MEDS: oxyCODONE HCL 5 MG TABLET PO PRN (10:45)
[2022-02-08] MEDS: ACETAMINOPHEN 325 MG TABLET (FP) PO PRN (10:46)
[2022-02-08] MEDS: FOLIC ACID 1 MG TABLET (FP) PO SCH (10:48)
[2022-02-08] MEDS: ENOXAPARIN NA (PORCINE) 40 MG/0.4 ML DISP.SYRIN SQ SCH (10:57)
[2022-02-08] MEDS: HYDROXYUREA 500 MG CAPSULE PO SCH (10:57)
[2022-02-08] MEDS ORDERED: oxyCODONE HCL 5 MG TABLET PO PRN (11:17)
[2022-02-08] MEDS: LACTATED RINGERS SOLUTION 1,000 ML/1,000 ML INFUS.BAG IV SCH ×3 (12:19→21:52)
[2022-02-08] MEDS ORDERED: ONDANSETRON 4 MG/2 ML VIAL IVPUSH PRN (12:41)
[2022-02-08] MEDS ORDERED: SODIUM CHLORIDE 1,000 ML IV SCH (12:45)
[2022-02-08 13:59] LABS: HEMATOCRIT 25.9 % (32.4-45.2); HEMOGLOBIN 8.3 GM/dL (10.7-15.3); MCHC 32.1 g/dl (32.0-36.0); MEAN CELL VOLUME 68.6 fl (80-96); MEAN PLT VOLUME 9.2 fl (7.5-11.1); PLATELET COUNT 244 10^3/uL (134-434); RBC 3.77 M/mm3 (3.60-5.2); RDW 17.4 % (11.6-15.6); WHITE BLOOD COUNT 6.5 K/mm3 (4.0-10.0)
[2022-02-08 14:18] LABS: CHLORIDE 102 mmol/L (98-107); SODIUM 135 mmol/L (136-145)
[2022-02-08 14:22] LABS: ANION GAP 7 MMOL/L (8-16); CALCIUM 8.4 mg/dL (8.5-10.1); CO2 26 mmol/L (21-32); GLUCOSE,RANDOM 90 mg/dL (74-106)
[2022-02-08 14:25] LABS: SGOT/AST 36 U/L (15-37); SGPT/ALT 56 U/L (13-61)
[2022-02-08 14:27] LABS: BILIRUBIN,TOTAL 1.4 mg/dL (0.2-1); TOT PROT 7.1 g/dl (6.4-8.2)
[2022-02-08 14:28] LABS: ALK PHOS 110 U/L (45-117)
[2022-02-08 14:34] LABS: BLOOD UREA NITROGEN 1.9 mg/dL (7-18); CREATININE 0.4 mg/dL (0.55-1.3)
[2022-02-08] MEDS: DOCUSATE SODIUM 100 MG CAPSULE (FP) PO SCH (21:53)
[2022-02-09] MEDS: LACTATED RINGERS SOLUTION 1,000 ML/1,000 ML INFUS.BAG IV SCH (03:16)
[2022-02-09] MEDS: HYDROmorphone HCl 2 MG/ML VIAL IVPB PRN (03:51)
[2022-02-09 08:20] LABS: HEMATOCRIT 22.6 % (32.4-45.2); HEMOGLOBIN 7.4 GM/dL (10.7-15.3); MCH 22.2 pg (25.7-33.7); MCHC 32.8 g/dl (32.0-36.0); MEAN CELL VOLUME 67.8 fl (80-96); MEAN PLT VOLUME 8.4 fl (7.5-11.1); PLATELET COUNT 206 10^3/uL (134-434); RBC 3.33 M/mm3 (3.60-5.2); RDW 17.7 % (11.6-15.6); WHITE BLOOD COUNT 4.6 K/mm3 (4.0-10.0)
[2022-02-09 08:36] LABS: CALCIUM 8.4 mg/dL (8.5-10.1)
[2022-02-09 08:37] LABS: CO2 26 mmol/L (21-32); GLUCOSE,RANDOM 85 mg/dL (74-106)
[2022-02-09 08:39] LABS: ANION GAP 8 MMOL/L (8-16); CHLORIDE 105 mmol/L (98-107); SODIUM 139 mmol/L (136-145)
[2022-02-09 08:40] LABS: BLOOD UREA NITROGEN 2.1 mg/dL (7-18); CREATININE 0.4 mg/dL (0.55-1.3)
[2022-02-09] MEDS ORDERED: POTASSIUM CHLORIDE ORAL LIQUID 20 MEQ/15 ML PO ONE (09:30)
[2022-02-09] MEDS: FOLIC ACID 1 MG TABLET (FP) PO SCH (10:59)
[2022-02-09] MEDS: HYDROXYUREA 500 MG CAPSULE PO SCH (11:00)
[2022-02-09] MEDS: ENOXAPARIN NA (PORCINE) 40 MG/0.4 ML DISP.SYRIN SQ SCH (11:01)
[2022-02-09] MEDS: oxyCODONE HCL 5 MG TABLET PO PRN ×2 (11:23→21:19)
[2022-02-09] MEDS ORDERED: POTASSIUM CHLORIDE TABS 20 MEQ TABLET.ER (FP) PO ONE (11:55)
[2022-02-09 14:44] VITALS: BMI 21.4
[2022-02-09] MEDS: SODIUM CHLORIDE 0.45% 1,000 ML IV SCH (21:20)
[2022-02-09] MEDS: DOCUSATE SODIUM 100 MG CAPSULE (FP) PO SCH (21:22)
[2022-02-09 23:24] LABS: EPI CELLS 4 /uL (0-25.1); HYALINE CASTS 0 /uL (0-3.1); PH,URINE 8.5 (5.0-8.0); URINE APPEARANCE CLEAR; URINE BACTERIA 8 /uL (0-1359); URINE BILIRUBIN NEGATIVE (NEGATIVE); URINE COLOR YELLOW; URINE GLUCOSE (UA) NEGATIVE (NEGATIVE); URINE KETONE NEGATIVE (NEGATIVE); URINE LEUK ESTERASE TRACE (NEGATIVE); URINE NITRITE NEGATIVE (NEGATIVE); URINE PROTEIN NEGATIVE (NEGATIVE); URINE RBC 2 /uL (0-23.9); URINE UROBILINOGEN 0.2 mg/dL (0.2-1.0); URINE WBC 54 /uL (0-25.8)
[2022-02-09 23:50] LABS: BASO % 0.5 % (0-2.0); EOS % 1.1 % (0-4.5); HEMATOCRIT 29.3 % (32.4-45.2); HEMOGLOBIN 9.6 GM/dL (10.7-15.3); LYMPH % 35.5 % (8-40); MCH 22.6 pg (25.7-33.7); MCHC 32.9 g/dl (32.0-36.0); MEAN CELL VOLUME 68.6 fl (80-96); MEAN PLT VOLUME 8.7 fl (7.5-11.1); MONO % 7.1 % (3.8-10.2); NEUT % 55.8 % (42.8-82.8); PLATELET COUNT 251 10^3/uL (134-434); RBC 4.27 M/mm3 (3.60-5.2); RDW 18.4 % (11.6-15.6); WHITE BLOOD COUNT 5.9 K/mm3 (4.0-10.0)
[2022-02-10] MEDS: SODIUM CHLORIDE 0.45% 1,000 ML IV SCH ×2 (02:55→09:19)
[2022-02-10 07:42] LABS: HEMATOCRIT 27.3 % (32.4-45.2); HEMOGLOBIN 9.2 GM/dL (10.7-15.3); MCH 23.2 pg (25.7-33.7); MCHC 33.7 g/dl (32.0-36.0); MEAN CELL VOLUME 68.7 fl (80-96); MEAN PLT VOLUME 8.6 fl (7.5-11.1); PLATELET COUNT 226 10^3/uL (134-434); RBC 3.98 M/mm3 (3.60-5.2); RDW 18.9 % (11.6-15.6); WHITE BLOOD COUNT 4.7 K/mm3 (4.0-10.0)
[2022-02-10 07:59] LABS: CHLORIDE 104 mmol/L (98-107); SODIUM 136 mmol/L (136-145)
[2022-02-10 08:01] LABS: CALCIUM 8.5 mg/dL (8.5-10.1)
[2022-02-10 08:02] LABS: GLUCOSE,RANDOM 85 mg/dL (74-106)
[2022-02-10 08:03] LABS: ANION GAP 8 MMOL/L (8-16); CO2 23 mmol/L (21-32)
[2022-02-10 08:05] LABS: CREATININE 0.5 mg/dL (0.55-1.3)
[2022-02-10 08:09] LABS: BLOOD UREA NITROGEN 2.3 mg/dL (7-18)
[2022-02-10] MEDS: HYDROXYUREA 500 MG CAPSULE PO SCH (09:13)
[2022-02-10] MEDS: ENOXAPARIN NA (PORCINE) 40 MG/0.4 ML DISP.SYRIN SQ SCH (09:13)
[2022-02-10] MEDS: FOLIC ACID 1 MG TABLET (FP) PO SCH (09:19)
[2022-02-10] MEDS: oxyCODONE HCL 5 MG TABLET PO PRN (09:37)
[2022-02-10 13:48] VITALS: BP 102/64; PULSE 90; TEMP 98.1
== END 2022-02-10 16:39 | disposition home or self-care (01) | DRG 812 ==
LOC: JER 05:25 → JERBED 10:58 → J5S 14:34
PROVIDERS: ADMIT Internal Medicine; ATTEND Internal Medicine
DX: D57.00 Hb-SS disease with crisis, unspecified (principal); R78.81 Bacteremia; M54.50 Low back pain, unspecified
CPT/HCPCS: 36415; 36430; 71046-TC-FY; 80048; 80053; 81003; 82728; 84703; 85025; 85027; 85045; 86850; 86900; 86901; 86922; 87040; 87086; 87186; 93005; 93010; 99285-25; C9803-CS; P9058; U0003; U0005

== ENCOUNTER 2022-05-04 01:38 | Inpatient (IN) | payer OTHER ==
[2022-05-04 02:29] VITALS: BMI 21.2
[2022-05-04] MEDS ORDERED: SODIUM CHLORIDE 0.9% 500 ML INFUS.BAG IV ONE (03:35)
[2022-05-04] MEDS ORDERED: HYDROmorphone HCL CARPU-JECT 2 MG/1 ML DISP.SYRIN IVPUSH ONE ×2 (03:36→06:43)
[2022-05-04] MEDS ORDERED: HYDROmorphone HCl 2 MG/ML VIAL ONE ×2 (04:06→06:50)
[2022-05-04] MEDS ORDERED: ONDANSETRON 4 MG/2 ML VIAL IVPUSH ONE ×2 (05:04→06:44)
[2022-05-04] MEDS ORDERED: ONDANSETRON 4 MG/2 ML VIAL ONE ×2 (05:14→06:49)
[2022-05-04 05:28] LABS: HEMOGLOBIN 9.4 GM/dL (10.7-15.3); MCH 23.3 pg (25.7-33.7); MCHC 32.4 g/dl (32.0-36.0); MEAN PLT VOLUME 8.7 fl (7.5-11.1); PLATELET COUNT 189 10^3/uL (134-434); RBC 4.03 M/mm3 (3.60-5.2); RDW 18.3 % (11.6-15.6); RETICULOCYTES 10.63 % (0.5-1.5); WHITE BLOOD COUNT 15.6 K/mm3 (4.0-10.0)
[2022-05-04 05:57] LABS: ALBUMIN 4.3 g/dl (3.4-5.0); CALCIUM 8.2 mg/dL (8.5-10.1)
[2022-05-04 05:58] LABS: BLOOD UREA NITROGEN 7.4 mg/dL (7-18)
[2022-05-04 06:01] LABS: CREATININE 0.6 mg/dL (0.55-1.3)
[2022-05-04 06:02] LABS: BILIRUBIN,TOTAL 1.4 mg/dL (0.2-1); TOT PROT 8.4 g/dl (6.4-8.2)
[2022-05-04 06:11] LABS: ANISOCYTOSIS 2+; MACROCYTOSIS 1+; TARGET CELLS 1+
[2022-05-04] MEDS ORDERED: ACETAMINOPHEN 500 MG TABLET (FP) PO PRN (09:00)
[2022-05-04] MEDS ORDERED: SODIUM CHLORIDE 1,000 ML IV SCH (09:00)
[2022-05-04] MEDS: ENOXAPARIN NA (PORCINE) 40 MG/0.4 ML DISP.SYRIN SQ SCH (11:00)
[2022-05-04] MEDS ORDERED: HYDROmorphone HCl 2 MG/ML VIAL IVPUSH PRN (11:14)
[2022-05-04] MEDS: SODIUM CHLORIDE 1,000 ML IV SCH (11:35)
[2022-05-04] MEDS ORDERED: oxyCODONE HCL 5 MG TABLET ONE (11:44)
[2022-05-04] MEDS: oxyCODONE HCL 5 MG TABLET PO PRN ×2 (11:48→17:44)
[2022-05-05] MEDS: oxyCODONE HCL 5 MG TABLET PO PRN (00:22)
[2022-05-05] MEDS: SODIUM CHLORIDE 1,000 ML IV SCH ×3 (03:00→18:55)
[2022-05-05 08:42] LABS: BASO % 0.9 % (0-2.0); EOS % 2.4 % (0-4.5); HEMOGLOBIN 7.8 GM/dL (10.7-15.3); LYMPH % 35.5 % (8-40); MCH 23.2 pg (25.7-33.7); MCHC 32.4 g/dl (32.0-36.0); MEAN CELL VOLUME 71.5 fl (80-96); MEAN PLT VOLUME 8.2 fl (7.5-11.1); MONO % 6.1 % (3.8-10.2); NEUT % 55.1 % (42.8-82.8); PLATELET COUNT 146 10^3/uL (134-434); RBC 3.36 M/mm3 (3.60-5.2); RDW 18.8 % (11.6-15.6); WHITE BLOOD COUNT 10.2 K/mm3 (4.0-10.0)
[2022-05-05 09:08] LABS: CALCIUM 8.1 mg/dL (8.5-10.1)
[2022-05-05 09:09] LABS: BLOOD UREA NITROGEN 4.8 mg/dL (7-18)
[2022-05-05 09:12] LABS: CREATININE 0.5 mg/dL (0.55-1.3)
[2022-05-05 09:13] LABS: BILIRUBIN,TOTAL 1.6 mg/dL (0.2-1); TOT PROT 6.7 g/dl (6.4-8.2)
[2022-05-05 09:22] LABS: ALBUMIN 3.3 g/dl (3.4-5.0)
[2022-05-05] MEDS: HYDROmorphone HCl 2 MG/ML VIAL IVPB PRN ×2 (10:23→18:54)
[2022-05-05] MEDS: ENOXAPARIN NA (PORCINE) 40 MG/0.4 ML DISP.SYRIN SQ SCH (10:29)
[2022-05-05 10:58] LABS: EPI CELLS 16 /uL (0-25.1); HYALINE CASTS 3 /uL (0-3.1); URINE APPEARANCE CLOUDY; URINE BACTERIA 2998 /uL (0-1359); URINE BILIRUBIN NEGATIVE (NEGATIVE); URINE COLOR YELLOW; URINE GLUCOSE (UA) NEGATIVE (NEGATIVE); URINE KETONE 1+ (NEGATIVE); URINE LEUK ESTERASE 3+ (NEGATIVE); URINE NITRITE NEGATIVE (NEGATIVE); URINE PROTEIN NEGATIVE (NEGATIVE); URINE RBC 20 /uL (0-23.9); URINE WBC 2180 /uL (0-25.8)
[2022-05-05] MEDS ORDERED: ONDANSETRON *ODT* 4 MG TABLET SL PRN (17:27)
[2022-05-06] MEDS: SODIUM CHLORIDE 1,000 ML IV SCH ×3 (06:49→16:47)
[2022-05-06 07:12] LABS: BASO % 0.9 % (0-2.0); EOS % 2.4 % (0-4.5); HEMATOCRIT 25.3 % (32.4-45.2); MCH 23.2 pg (25.7-33.7); MCHC 31.6 g/dl (32.0-36.0); MEAN CELL VOLUME 73.3 fl (80-96); MONO % 7.1 % (3.8-10.2); NEUT % 46.6 % (42.8-82.8); RBC 3.45 M/mm3 (3.60-5.2); RDW 18.3 % (11.6-15.6); WHITE BLOOD COUNT 8.4 K/mm3 (4.0-10.0)
[2022-05-06 07:34] LABS: ALBUMIN 3.2 g/dl (3.4-5.0); BLOOD UREA NITROGEN 3.5 mg/dL (7-18); MAGNESIUM 1.8 mg/dL (1.8-2.4)
[2022-05-06 07:37] LABS: CREATININE 0.5 mg/dL (0.55-1.3)
[2022-05-06 07:38] LABS: BILIRUBIN,TOTAL 1.8 mg/dL (0.2-1); TOT PROT 6.5 g/dl (6.4-8.2)
[2022-05-06 10:35] LABS: PLATELET ESTIMATE SLT DECREASE
[2022-05-06] MEDS: ENOXAPARIN NA (PORCINE) 40 MG/0.4 ML DISP.SYRIN SQ SCH ×2 (10:39→11:43)
[2022-05-06] MEDS: HYDROmorphone HCl 2 MG/ML VIAL IVPB PRN (11:33)
[2022-05-06] MEDS ORDERED: cefTRIAXone SODIUM 1 GM VIAL ONE (13:42)
[2022-05-06] MEDS ORDERED: DEXTROSE 5%-WATER - 50 ML IVPB ONE (13:42)
[2022-05-06] MEDS: CEFTRIAXONE 1 GM in DEXTROSE 5%-WATER - 50 ML IVPB SCH (13:45)
[2022-05-07] MEDS: SODIUM CHLORIDE 1,000 ML IV SCH (05:06)
[2022-05-07] MEDS ORDERED: cefTRIAXone SODIUM 1 GM VIAL ONE (09:43)
[2022-05-07] MEDS ORDERED: DEXTROSE 5%-WATER - 50 ML IVPB ONE (09:44)
[2022-05-07] MEDS: CEFTRIAXONE 1 GM in DEXTROSE 5%-WATER - 50 ML IVPB SCH (09:49)
[2022-05-07] MEDS: ENOXAPARIN NA (PORCINE) 40 MG/0.4 ML DISP.SYRIN SQ SCH (09:53)
[2022-05-07 09:57] LABS: BASO % 0.8 % (0-2.0); EOS % 2.2 % (0-4.5); HEMATOCRIT 25.3 % (32.4-45.2); LYMPH % 39.3 % (8-40); MCH 23.2 pg (25.7-33.7); MCHC 31.5 g/dl (32.0-36.0); MEAN CELL VOLUME 73.7 fl (80-96); MONO % 7.2 % (3.8-10.2); NEUT % 50.5 % (42.8-82.8); PLATELET COUNT 170 10^3/uL (134-434); RBC 3.44 M/mm3 (3.60-5.2); RDW 19.5 % (11.6-15.6); WHITE BLOOD COUNT 7.2 K/mm3 (4.0-10.0)
[2022-05-07 10:17] LABS: CHLORIDE 112 mmol/L (98-107); SODIUM 143 mmol/L (136-145)
[2022-05-07 10:23] LABS: CALCIUM 8.2 mg/dL (8.5-10.1)
[2022-05-07 10:24] LABS: ALBUMIN 3.1 g/dl (3.4-5.0); ANION GAP 5 MMOL/L (8-16); CO2 27 mmol/L (21-32); GLUCOSE,RANDOM 85 mg/dL (74-106); MAGNESIUM 1.7 mg/dL (1.8-2.4)
[2022-05-07 10:26] LABS: CREATININE 0.4 mg/dL (0.55-1.3)
[2022-05-07 10:27] LABS: SGOT/AST 17 U/L (15-37); TOT PROT 6.2 g/dl (6.4-8.2)
[2022-05-07 10:29] LABS: ALK PHOS 60 U/L (45-117)
[2022-05-07 10:30] LABS: BILIRUBIN,TOTAL 1.2 mg/dL (0.2-1)
[2022-05-07 10:33] LABS: SGPT/ALT 17 U/L (13-61)
[2022-05-07 11:02] LABS: BLOOD UREA NITROGEN 1.5 mg/dL (7-18)
[2022-05-07] MEDS ORDERED: MAGNESIUM OXIDE 400 MG TABLET (FP) PO ONE (12:15)
[2022-05-07 15:17] VITALS: BP 113/78; PULSE 75; TEMP 98.5
== END 2022-05-07 17:41 | disposition home or self-care (01) | DRG 812 ==
LOC: JER 01:38 → JERBED 05:42 → J6S 15:15
PROVIDERS: ADMIT Internal Medicine; ATTEND Nurse Practitioner Family
DX: D57.00 Hb-SS disease with crisis, unspecified (principal); D50.9 Iron deficiency anemia, unspecified; D72.829 Elevated white blood cell count, unspecified
CPT/HCPCS: 36415; 71046-TC-FY; 80053; 81003; 83605; 83735; 84484; 84703; 85025; 85045; 87040; 87086; 87186; 93005; 93010; 94010; 99285-25; C9803-CS; Q0162; U0003; U0005

== ENCOUNTER 2022-05-24 04:00 | Inpatient (IN) | payer OTHER ==
[2022-05-24] MEDS ORDERED: oxyCODONE HCL 5 MG TABLET PO ONE (04:38)
[2022-05-24] MEDS ORDERED: oxyCODONE HCL 5 MG TABLET ONE (04:50)
[2022-05-24] MEDS ORDERED: HYDROmorphone HCL CARPU-JECT 2 MG/1 ML DISP.SYRIN IVPB ONE ×3 (06:10→09:06)
[2022-05-24 06:13] LABS: HEMATOCRIT 25.8 % (32.4-45.2); HEMOGLOBIN 8.3 GM/dL (10.7-15.3); MCH 22.3 pg (25.7-33.7); MCHC 32.3 g/dl (32.0-36.0); MEAN CELL VOLUME 69.2 fl (80-96); MEAN PLT VOLUME 8.8 fl (7.5-11.1); PLATELET COUNT 244 10^3/uL (134-434); RBC 3.72 M/mm3 (3.60-5.2)
[2022-05-24] MEDS ORDERED: SODIUM CHLORIDE 0.9% 500 ML INFUS.BAG IV ONE (06:13)
[2022-05-24] MEDS ORDERED: HYDROmorphone HCl 2 MG/ML VIAL ONE ×6 (06:14→20:55)
[2022-05-24 06:33] LABS: ALBUMIN 4.3 g/dl (3.4-5.0); BLOOD UREA NITROGEN 3.6 mg/dL (7-18); CALCIUM 8.4 mg/dL (8.5-10.1)
[2022-05-24 06:36] LABS: CREATININE 0.7 mg/dL (0.55-1.3)
[2022-05-24 06:38] LABS: BILIRUBIN,TOTAL 2.3 mg/dL (0.2-1); TOT PROT 8.5 g/dl (6.4-8.2)
[2022-05-24 06:44] LABS: RETICULOCYTES 10.63 % (0.5-1.5)
[2022-05-24 08:35] LABS: ANISOCYTOSIS 2+; CORRECTED WBC 11.76 K/mm3; MACROCYTOSIS 0; TARGET CELLS 1+; TEAR DROP CELLS 1+
[2022-05-24 08:38] LABS: PLATELET ESTIMATE ADEQUATE; SICKELED CELLS 1+
[2022-05-24] MEDS ORDERED: oxyCODONE HCL 5 MG TABLET PO PRN (09:55)
[2022-05-24] MEDS ORDERED: ACETAMINOPHEN 1000 MG/100 ML BAG IVPB PRN (09:58)
[2022-05-24] MEDS ORDERED: HYDROmorphone HCL CARPU-JECT 2 MG/1 ML DISP.SYRIN IVPUSH PRN (10:00)
[2022-05-24] MEDS ORDERED: SODIUM CHLORIDE 1,000 ML IV SCH (10:00)
[2022-05-24] MEDS ORDERED: ACETAMINOPHEN INJECTION 100 ML IVPB ONE ×2 (10:42→20:56)
[2022-05-24] MEDS ORDERED: POTASSIUM CHLORIDE TABS 20 MEQ TABLET.ER (FP) PO ONE ×2 (10:42→10:45)
[2022-05-24] MEDS ORDERED: ENOXAPARIN NA (PORCINE) 40 MG/0.4 ML DISP.SYRIN SQ ONE (10:43)
[2022-05-24] MEDS: ENOXAPARIN NA (PORCINE) 40 MG/0.4 ML DISP.SYRIN SQ SCH (11:01)
[2022-05-24] MEDS: HYDROmorphone HCl 2 MG/ML VIAL IVPUSH PRN ×2 (13:23→17:45)
[2022-05-24] MEDS ORDERED: HYDROmorphone HCl 2 MG/ML VIAL IVPUSH PRN (14:00)
[2022-05-24] MEDS: FOLIC ACID 1 MG TABLET (FP) PO SCH (17:10)
[2022-05-24] MEDS ORDERED: FOLIC ACID 1 MG TABLET (FP) ONE (17:36)
[2022-05-24] MEDS: SODIUM CHLORIDE 1,000 ML IV SCH (17:43)
[2022-05-24] MEDS ORDERED: HYDROmorphone HCl 2 MG/ML VIAL IVPB PRN (19:41)
[2022-05-24] MEDS: HYDROmorphone HCl 2 MG/ML VIAL IVPB PRN ×2 (21:04→22:50)
[2022-05-24] MEDS ORDERED: TRIMETHOBENZAMIDE HCL 200MG/2ML INJ IM ONE (23:29)
[2022-05-25 09:11] LABS: CHLORIDE 110 mmol/L (98-107); SODIUM 141 mmol/L (136-145)
[2022-05-25 09:16] LABS: BASO % 0.5 % (0-2.0); EOS % 0.3 % (0-4.5); HEMATOCRIT 20.8 % (32.4-45.2); LYMPH % 25.8 % (8-40); MCH 22.4 pg (25.7-33.7); MCHC 32.4 g/dl (32.0-36.0); MEAN CELL VOLUME 69.1 fl (80-96); MEAN PLT VOLUME 8.4 fl (7.5-11.1); MONO % 7.3 % (3.8-10.2); NEUT % 66.1 % (42.8-82.8); PLATELET COUNT 201 10^3/uL (134-434); RBC 3.02 M/mm3 (3.60-5.2); RDW 18.4 % (11.6-15.6)
[2022-05-25 09:23] LABS: CALCIUM 7.9 mg/dL (8.5-10.1)
[2022-05-25 09:24] LABS: ANION GAP 8 MMOL/L (8-16); CO2 23 mmol/L (21-32); GLUCOSE,RANDOM 95 mg/dL (74-106); HEMOGLOBIN 6.7 GM/dL (10.7-15.3)
[2022-05-25 09:27] LABS: CREATININE 0.4 mg/dL (0.55-1.3)
[2022-05-25 09:28] LABS: BLOOD UREA NITROGEN 2.7 mg/dL (7-18); LDH 495 U/L (84-246)
[2022-05-25] MEDS ORDERED: TRIMETHOBENZAMIDE HCL 200MG/2ML INJ IM PRN (09:49)
[2022-05-25] MEDS: HYDROmorphone HCl 2 MG/ML VIAL IVPB PRN ×3 (09:56→21:34)
[2022-05-25] MEDS: FOLIC ACID 1 MG TABLET (FP) PO SCH (09:59)
[2022-05-25] MEDS: ENOXAPARIN NA (PORCINE) 40 MG/0.4 ML DISP.SYRIN SQ SCH (10:00)
[2022-05-25] MEDS: SODIUM CHLORIDE 1,000 ML IV SCH (12:38)
[2022-05-25] MEDS ORDERED: REMDESIVIR 200 MG in SODIUM CHLORIDE 250 ML IVPB ONE (14:30)
[2022-05-25] MEDS: LACTATED RINGERS SOLUTION 1,000 ML/1,000 ML INFUS.BAG IV SCH (14:51)
[2022-05-25 16:47] LABS: HEMATOCRIT 22.2 % (32.4-45.2); HEMOGLOBIN 7.1 GM/dL (10.7-15.3); MCH 22.3 pg (25.7-33.7); MCHC 32.2 g/dl (32.0-36.0); MEAN CELL VOLUME 69.3 fl (80-96); PLATELET COUNT 213 10^3/uL (134-434); RDW 18.4 % (11.6-15.6); WHITE BLOOD COUNT 12.7 K/mm3 (4.0-10.0)
[2022-05-26] MEDS ORDERED: ACETAMINOPHEN 325 MG TABLET (FP) PO PRN (05:01)
[2022-05-26 09:15] LABS: BASO % 0.2 % (0-2.0); EOS % 0.3 % (0-4.5); HEMATOCRIT 25.7 % (32.4-45.2); HEMOGLOBIN 8.4 GM/dL (10.7-15.3); LYMPH % 29.6 % (8-40); MCH 23.6 pg (25.7-33.7); MCHC 32.7 g/dl (32.0-36.0); MEAN CELL VOLUME 72.2 fl (80-96); MEAN PLT VOLUME 8.8 fl (7.5-11.1); MONO % 7.6 % (3.8-10.2); NEUT % 62.3 % (42.8-82.8); PLATELET COUNT 174 10^3/uL (134-434); RBC 3.56 M/mm3 (3.60-5.2); RDW 20.1 % (11.6-15.6)
[2022-05-26] MEDS ORDERED: POTASSIUM CHLORIDE TABS 20 MEQ TABLET.ER (FP) PO ONE (09:37)
[2022-05-26 09:54] LABS: BLOOD UREA NITROGEN 3.4 mg/dL (7-18); CALCIUM 8.2 mg/dL (8.5-10.1); MAGNESIUM 1.8 mg/dL (1.8-2.4)
[2022-05-26 09:57] LABS: CREATININE 0.4 mg/dL (0.55-1.3); PHOSPHOROUS 3.6 mg/dL (2.5-4.9)
[2022-05-26 09:59] LABS: BILIRUBIN,TOTAL 1.9 mg/dL (0.2-1); TOT PROT 6.6 g/dl (6.4-8.2)
[2022-05-26 10:09] LABS: ALBUMIN 3.1 g/dl (3.4-5.0)
[2022-05-26] MEDS: FOLIC ACID 1 MG TABLET (FP) PO SCH (10:14)
[2022-05-26] MEDS: HYDROmorphone HCl 2 MG/ML VIAL IVPB PRN ×2 (10:50→21:46)
[2022-05-26] MEDS ORDERED: MAGNESIUM SULF 50% (8.12 MEQ/2 ML-1 GM VIAL) IVPB ONE (10:50)
[2022-05-26] MEDS: MAGNESIUM 1GM/D5W 100ML - 100 ML IVPB IVPB SCH ×2 (13:17→16:26)
[2022-05-26 15:37] VITALS: BMI 20.9
[2022-05-26] MEDS: LACTATED RINGERS SOLUTION 1,000 ML/1,000 ML INFUS.BAG IV SCH (16:00)
[2022-05-26] MEDS: REMDESIVIR 100 MG in SODIUM CHLORIDE 250 ML IVPB SCH (16:26)
[2022-05-27] MEDS: LACTATED RINGERS SOLUTION 1,000 ML/1,000 ML INFUS.BAG IV SCH ×2 (06:24→15:41)
[2022-05-27] MEDS ORDERED: HYDROmorphone HCl 2 MG/ML VIAL IVPB PRN (06:37)
[2022-05-27 08:07] VITALS: RESP 20
[2022-05-27] MEDS: FOLIC ACID 1 MG TABLET (FP) PO SCH (11:04)
[2022-05-27] MEDS: REMDESIVIR 100 MG in SODIUM CHLORIDE 250 ML IVPB SCH ×2 (14:07→14:11)
[2022-05-28] MEDS: FOLIC ACID 1 MG TABLET (FP) PO SCH (09:50)
[2022-05-28 10:43] VITALS: BP 103/65; PULSE 88; TEMP 98.5
== END 2022-05-28 11:45 | disposition home or self-care (01) | DRG 811 ==
LOC: JER 04:00 → JERBED 09:10 → J8W 21:29
PROVIDERS: ADMIT Internal Medicine
PROC: 30233N1 Transfusion of Nonautologous Red Blood Cells into Peripheral Vein, Percutaneous Approach (ICD-10-PCS; principal; 2022-05-25)
PROC: XW033E5 Introduction of Remdesivir Anti-infective into Peripheral Vein, Percutaneous Approach, New Technology Group 5 (ICD-10-PCS; 2022-05-25)
DX: D57.00 Hb-SS disease with crisis, unspecified (principal); U07.1 COVID-19; E87.6 Hypokalemia; D64.9 Anemia, unspecified
CPT/HCPCS: 36415; 36430; 71045-TC-FY; 80048; 80053; 83615; 83735; 84100; 84703; 85025; 85027; 85045; 86850; 86900; 86901; 86922; 93005; 93010; 99285-25; C9399; C9803-CS; P9058; U0003; U0005

== ENCOUNTER 2023-06-01 23:23 | Inpatient (IN) | payer OTHER ==
[2023-06-01] MEDS ORDERED: LACTATED RINGERS SOLUTION 1000 ML INFUS.BAG IV ONE (23:28)
[2023-06-01] MEDS ORDERED: ONDANSETRON 4 MG/2 ML VIAL IVPUSH ONE (23:28)
[2023-06-01 23:34] VITALS: BMI 22.2
[2023-06-02 00:29] LABS: BASO % 0.5 % (0-2.0); EOS % 0.2 % (0-4.5); HEMATOCRIT 22.2 % (32.4-45.2); HEMOGLOBIN 7.5 GM/dL (10.7-15.3); LYMPH % 18.8 % (8-40); MCH 24.3 pg (25.7-33.7); MCHC 33.6 g/dl (32.0-36.0); MEAN CELL VOLUME 72.4 fl (80-96); MEAN PLT VOLUME 8.3 fl (7.5-11.1); MONO % 5.9 % (3.8-10.2); NEUT % 74.6 % (42.8-82.8); PLATELET COUNT 157 10^3/uL (134-434); RBC 3.07 M/mm3 (3.60-5.2); RDW 15.4 % (11.6-15.6); WHITE BLOOD COUNT 12.8 K/mm3 (4.0-10.0)
[2023-06-02 00:35] LABS: INR 1.09 (0.83-1.09); PROTHROMBIN TIME (PATIENT) 12.6 SEC (9.7-13.0)
[2023-06-02 00:37] LABS: ACTIVATED PTT 27.4 SECONDS (25.2-36.5)
[2023-06-02 00:55] LABS: POTASSIUM 3.2 mmol/L (3.5-5.1)
[2023-06-02 00:57] LABS: CALCIUM 8.4 mg/dL (8.5-10.1)
[2023-06-02 00:58] LABS: ALBUMIN 3.8 g/dl (3.4-5.0); BLOOD UREA NITROGEN 8.5 mg/dL (7-18)
[2023-06-02 01:01] LABS: CREATININE 1.2 mg/dL (0.55-1.3)
[2023-06-02 01:02] LABS: TOT PROT 8.1 g/dl (6.4-8.2)
[2023-06-02 01:03] LABS: BILIRUBIN,TOTAL 1.2 mg/dL (0.2-1)
[2023-06-02] MEDS ORDERED: DEXTROSE 50%-WATER - 25 GM/50 ML VIAL IVPUSH ONE (01:16)
[2023-06-02] MEDS ORDERED: HYDROmorphone HCl 2 MG/ML VIAL IVPUSH STA (02:02)
[2023-06-02] MEDS: KCL 10 MEQ IVPB 10 MEQ/100 ML INFUS.BAG IVPB SCH ×2 (02:05→02:58)
[2023-06-02] MEDS ORDERED: HYDROmorphone HCl 2 MG/ML VIAL ONE ×2 (02:10→04:24)
[2023-06-02] MEDS ORDERED: KCL 10 MEQ IVPB 10 MEQ/100 ML INFUS.BAG IVPB ONE ×2 (02:10→03:01)
[2023-06-02 02:24] LABS: EPI CELLS 14 /uL (0-25.1); HYALINE CASTS 1 /uL (0-3.1); PH,URINE 5.5 (5.0-8.0); URINE APPEARANCE CLEAR; URINE BACTERIA >9,000 /uL (0-1359); URINE BILIRUBIN NEGATIVE (NEGATIVE); URINE COLOR YELLOW; URINE GLUCOSE (UA) 1+ (NEGATIVE); URINE KETONE NEGATIVE (NEGATIVE); URINE LEUK ESTERASE TRACE (NEGATIVE); URINE NITRITE POSITIVE (NEGATIVE); URINE PROTEIN TRACE (NEGATIVE); URINE RBC 126 /uL (0-23.9); URINE WBC 72 /uL (0-25.8)
[2023-06-02] MEDS ORDERED: HYDROmorphone HCl 2 MG/ML VIAL IVPUSH ONE (04:15)
[2023-06-02] MEDS ORDERED: HYDROmorphone HCL 2 MG TABLET PO PRN (04:29)
[2023-06-02] MEDS ORDERED: SODIUM CHLORIDE 1,000 ML IV SCH ×2 (04:30→19:30)
[2023-06-02] MEDS ORDERED: DEXTROSE 5%-0.45% SALINE 1,000 ML IV SCH (04:30)
[2023-06-02 04:59] LABS: OPIATES, URI NEGATIVE (NEGATIVE); URINE BARBITURATES NEGATIVE (NEGATIVE)
[2023-06-02 05:00] LABS: METHADONE, UR NEGATIVE (NEGATIVE); PHENCYCLIDINE,URINE NEGATIVE (NEGATIVE); URINE BENZODIAZEPINES NEGATIVE (NEGATIVE)
[2023-06-02 05:02] LABS: COCAINE, UR NEGATIVE (NEGATIVE); URINE AMPHETAMINES NEGATIVE (NEGATIVE)
[2023-06-02] MEDS: ONDANSETRON 4 MG/2 ML VIAL IVPUSH PRN ×2 (08:42→13:40)
[2023-06-02] MEDS: HYDROmorphone HCl 2 MG/ML VIAL IVPB PRN ×3 (08:42→21:01)
[2023-06-02] MEDS: SODIUM CHLORIDE 1,000 ML IV SCH (09:29)
[2023-06-02] MEDS: ENOXAPARIN NA (PORCINE) 40 MG/0.4 ML DISP.SYRIN SQ SCH ×2 (10:59→11:05)
[2023-06-02] MEDS: PANTOPRAZOLE SODIUM 40 MG VIAL IVPUSH SCH (10:59)
[2023-06-02 11:15] LABS: HEMATOCRIT 21.5 % (32.4-45.2); MCH 23.7 pg (25.7-33.7); MCHC 32.5 g/dl (32.0-36.0); MEAN CELL VOLUME 72.9 fl (80-96); PLATELET COUNT 109 10^3/uL (134-434); RBC 2.95 M/mm3 (3.60-5.2); RDW 15.5 % (11.6-15.6); WHITE BLOOD COUNT 9.4 K/mm3 (4.0-10.0)
[2023-06-02 11:28] LABS: POTASSIUM 3.6 mmol/L (3.5-5.1)
[2023-06-02 11:32] LABS: ALBUMIN 3.2 g/dl (3.4-5.0); BLOOD UREA NITROGEN 6.2 mg/dL (7-18); CALCIUM 7.7 mg/dL (8.5-10.1); MAGNESIUM 1.8 mg/dL (1.8-2.4)
[2023-06-02 11:35] LABS: CREATININE 0.8 mg/dL (0.55-1.3); PHOSPHOROUS 2.8 mg/dL (2.5-4.9)
[2023-06-02 11:37] LABS: BILIRUBIN,TOTAL 1.9 mg/dL (0.2-1); TOT PROT 6.7 g/dl (6.4-8.2)
[2023-06-02] MEDS ORDERED: CEFTRIAXONE 1 GM in DEXTROSE 5%-WATER - 50 ML IVPB ONE (15:15)
[2023-06-02] MEDS ORDERED: ACETAMINOPHEN 325 MG TABLET (FP) PO PRN (15:22)
[2023-06-02] MEDS: FOLIC ACID 1 MG TABLET (FP) PO SCH (21:01)
[2023-06-03] MEDS: ACETAMINOPHEN 325 MG TABLET (FP) PO PRN (00:31)
[2023-06-03] MEDS ORDERED: ACETAMINOPHEN 1000 MG/100 ML BAG IVPB ONE (03:31)
[2023-06-03] MEDS ORDERED: ACETAMINOPHEN 1000 MG/100 ML BAG IVPB PRN (09:23)
[2023-06-03] MEDS: ENOXAPARIN NA (PORCINE) 40 MG/0.4 ML DISP.SYRIN SQ SCH (10:59)
[2023-06-03] MEDS: KETOROLAC TROMETHAMINE 30 MG/1 ML VIAL IVPUSH PRN (11:00)
[2023-06-03] MEDS: FOLIC ACID 1 MG TABLET (FP) PO SCH (11:00)
[2023-06-03] MEDS: PANTOPRAZOLE SODIUM 40 MG VIAL IVPUSH SCH (11:00)
[2023-06-03] MEDS: SODIUM CHLORIDE 1,000 ML IV SCH ×2 (11:05→20:12)
[2023-06-03 13:42] LABS: BASO % 0.4 % (0-2.0); EOS % 0.9 % (0-4.5); HEMATOCRIT 25.8 % (32.4-45.2); HEMOGLOBIN 8.4 GM/dL (10.7-15.3); LYMPH % 24.7 % (8-40); MCH 24.4 pg (25.7-33.7); MCHC 32.6 g/dl (32.0-36.0); MEAN CELL VOLUME 74.9 fl (80-96); MEAN PLT VOLUME 9.1 fl (7.5-11.1); MONO % 6.9 % (3.8-10.2); NEUT % 67.1 % (42.8-82.8); PLATELET COUNT 109 10^3/uL (134-434); RBC 3.44 M/mm3 (3.60-5.2); WHITE BLOOD COUNT 6.2 K/mm3 (4.0-10.0)
[2023-06-03 14:32] LABS: CALCIUM 8.1 mg/dL (8.5-10.1)
[2023-06-03 14:34] LABS: CREATININE 0.9 mg/dL (0.55-1.3)
[2023-06-03 14:39] LABS: ALBUMIN 2.9 g/dl (3.4-5.0); BILIRUBIN,TOTAL 1.8 mg/dL (0.2-1); BLOOD UREA NITROGEN 5.4 mg/dL (7-18); POTASSIUM 3.5 mmol/L (3.5-5.1); TOT PROT 6.6 g/dl (6.4-8.2)
[2023-06-04 08:34] LABS: BASO % 0.5 % (0-2.0); EOS % 1.7 % (0-4.5); HEMATOCRIT 20.5 % (32.4-45.2); LYMPH % 34.7 % (8-40); MCH 24.2 pg (25.7-33.7); MCHC 32.8 g/dl (32.0-36.0); MEAN CELL VOLUME 73.8 fl (80-96); MEAN PLT VOLUME 9.5 fl (7.5-11.1); MONO % 6.8 % (3.8-10.2); NEUT % 56.3 % (42.8-82.8); PLATELET COUNT 70 10^3/uL (134-434); RBC 2.78 M/mm3 (3.60-5.2); RDW 16.6 % (11.6-15.6); WHITE BLOOD COUNT 7.2 K/mm3 (4.0-10.0)
[2023-06-04 08:37] LABS: HEMOGLOBIN 6.7 GM/dL (10.7-15.3)
[2023-06-04 08:49] LABS: POTASSIUM 3.6 mmol/L (3.5-5.1)
[2023-06-04 08:53] LABS: CALCIUM 7.8 mg/dL (8.5-10.1)
[2023-06-04 08:54] LABS: ALBUMIN 2.7 g/dl (3.4-5.0); BLOOD UREA NITROGEN 5.5 mg/dL (7-18); MAGNESIUM 1.8 mg/dL (1.8-2.4)
[2023-06-04 08:57] LABS: CREATININE 0.7 mg/dL (0.55-1.3)
[2023-06-04 08:59] LABS: TOT PROT 5.9 g/dl (6.4-8.2)
[2023-06-04] MEDS: ENOXAPARIN NA (PORCINE) 40 MG/0.4 ML DISP.SYRIN SQ SCH ×2 (11:00)
[2023-06-04] MEDS: FOLIC ACID 1 MG TABLET (FP) PO SCH (11:00)
[2023-06-04] MEDS: PANTOPRAZOLE SODIUM 40 MG VIAL IVPUSH SCH (11:00)
[2023-06-04] MEDS: SODIUM CHLORIDE 1,000 ML IV SCH ×2 (11:31→20:52)
[2023-06-04] MEDS ORDERED: CEFTRIAXONE 1 GM in DEXTROSE 5%-WATER - 50 ML IVPB SCH (13:15)
[2023-06-04 13:16] LABS: HEMATOCRIT 24.4 % (32.4-45.2); HEMOGLOBIN 7.9 GM/dL (10.7-15.3); MCH 24.4 pg (25.7-33.7); MCHC 32.5 g/dl (32.0-36.0); MEAN CELL VOLUME 75.1 fl (80-96); MEAN PLT VOLUME 9.3 fl (7.5-11.1); PLATELET COUNT 79 10^3/uL (134-434); RBC 3.25 M/mm3 (3.60-5.2); RDW 16.6 % (11.6-15.6); WHITE BLOOD COUNT 7.1 K/mm3 (4.0-10.0)
[2023-06-05] MEDS: SODIUM CHLORIDE 1,000 ML IV SCH ×2 (05:35→14:06)
[2023-06-05] MEDS: CEFTRIAXONE 1 GM in DEXTROSE 5%-WATER - 50 ML IVPB SCH (08:37)
[2023-06-05 10:05] LABS: BASO % 0.7 % (0-2.0); EOS % 1.9 % (0-4.5); HEMATOCRIT 20.2 % (32.4-45.2); LYMPH % 39.6 % (8-40); MCH 24.9 pg (25.7-33.7); MCHC 32.8 g/dl (32.0-36.0); MEAN CELL VOLUME 75.8 fl (80-96); MEAN PLT VOLUME 9.5 fl (7.5-11.1); MONO % 7.4 % (3.8-10.2); NEUT % 50.4 % (42.8-82.8); PLATELET COUNT 78 10^3/uL (134-434); RBC 2.67 M/mm3 (3.60-5.2); RDW 17.3 % (11.6-15.6); WHITE BLOOD COUNT 8.3 K/mm3 (4.0-10.0)
[2023-06-05 10:08] LABS: POTASSIUM 3.5 mmol/L (3.5-5.1)
[2023-06-05 10:11] LABS: HEMOGLOBIN 6.6 GM/dL (10.7-15.3)
[2023-06-05 10:12] LABS: ALBUMIN 2.7 g/dl (3.4-5.0); CALCIUM 7.9 mg/dL (8.5-10.1)
[2023-06-05 10:13] LABS: BLOOD UREA NITROGEN 4.1 mg/dL (7-18); MAGNESIUM 1.6 mg/dL (1.8-2.4)
[2023-06-05 10:17] LABS: BILIRUBIN,TOTAL 0.9 mg/dL (0.2-1)
[2023-06-05 10:26] LABS: CREATININE 0.8 mg/dL (0.55-1.3)
[2023-06-05] MEDS: PANTOPRAZOLE SODIUM 40 MG VIAL IVPUSH SCH (10:36)
[2023-06-05] MEDS: FOLIC ACID 1 MG TABLET (FP) PO SCH (10:36)
[2023-06-05 15:27] VITALS: RESP 18
[2023-06-06] MEDS: ACETAMINOPHEN 325 MG TABLET (FP) PO PRN (01:24)
[2023-06-06] MEDS: SODIUM CHLORIDE 1,000 ML IV SCH ×2 (01:30→08:44)
[2023-06-06] MEDS: KETOROLAC TROMETHAMINE 30 MG/1 ML VIAL IVPUSH PRN (02:31)
[2023-06-06 06:00] VITALS: PULSE 65
[2023-06-06] MEDS: CEFTRIAXONE 1 GM in DEXTROSE 5%-WATER - 50 ML IVPB SCH (08:44)
[2023-06-06] MEDS: PANTOPRAZOLE SODIUM 40 MG VIAL IVPUSH SCH (11:32)
[2023-06-06] MEDS: FOLIC ACID 1 MG TABLET (FP) PO SCH (11:32)
[2023-06-06 11:55] VITALS: BP 143/91; TEMP 97.8
[2023-06-06 11:55] LABS: HEMATOCRIT 27.4 % (32.4-45.2); HEMOGLOBIN 8.9 GM/dL (10.7-15.3); MCH 24.8 pg (25.7-33.7); MCHC 32.4 g/dl (32.0-36.0); MEAN CELL VOLUME 76.3 fl (80-96); MEAN PLT VOLUME 10.1 fl (7.5-11.1); PLATELET COUNT 125 10^3/uL (134-434); RBC 3.59 M/mm3 (3.60-5.2); RDW 17.9 % (11.6-15.6); WHITE BLOOD COUNT 10.4 K/mm3 (4.0-10.0)
== END 2023-06-06 16:20 | disposition home or self-care (01) | DRG 812 ==
LOC: JER 23:23 → JERBED 06-02 00:45 → J7W 06-02 06:28
PROVIDERS: ADMIT Internal Medicine; ATTEND Internal Medicine
PROC: 30233N1 Transfusion of Nonautologous Red Blood Cells into Peripheral Vein, Percutaneous Approach (ICD-10-PCS; principal; 2023-06-03)
DX: D57.00 Hb-SS disease with crisis, unspecified (principal); K92.0 Hematemesis; N39.0 Urinary tract infection, site not specified; R10.9 Unspecified abdominal pain; R00.0 Tachycardia, unspecified; R06.02 Shortness of breath; D64.9 Anemia, unspecified
CPT/HCPCS: 36415; 36430; 71045-TC-FY; 80053; 80307; 81003; 82962; 83615; 83690; 83735; 84100; 84484; 84703; 85025; 85027; 85045; 85610; 85730; 86850; 86900; 86901; 86902; 86922; 87086; 87186; 93005; 93010; 99285-25; P9058